=== PATIENT | male | born 1940 | race Caucasian/White ===

== ENCOUNTER 2016-10-04 16:35 | Inpatient (IN) | payer OTHER, BC ==
[2016-10-04] MEDS ORDERED: ACETAMINOPHEN 1000 MG/100 ML VIAL (NON FORMULARY) IVPB ONE (16:55)
--- NOTE | 2016-10-04 17:08 | PDOC ---
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 Patient was noted with a 105.1 fever upon presentation to ED. Patient denies any sick contacts, recent travels. Patient was seen by oncologist at [facility] on Friday and was given some oxycodone for joint/limb pain with movement. Patient denies nausea, vomiting, diarrhea, chest pain , SOB. PCP: Dr. Flores Oncologist : [facility] <Chaim Motley - Last Filed: 10/04/16 19:02> - General History Source: Patient, Family, Old Records Exam Limitations: No Limitations <Lobo Jerome - Last Filed: 10/04/16 19:08> - General Chief Complaint: Cold Symptoms Stated Complaint: FEVER Time Seen by Provider: 10/04/16 16:42 Past History <Chaim Motley - Last Filed: 10/04/16 19:02> - Past Medical History Anemia: Yes Asthma: No Cancer: Yes (STAGE IV LUNG CA) CVA: No COPD: No Dementia: No Diabetes: No GI Disorders: No Disorders: No Hypercholesterolemia: Yes Liver Disease: No Seizures: No Thyroid Disease: No - Psycho/Social/Smoking Cessation Hx Anxiety: No Suicidal Ideation: No Smoking History: Never smoked Have you smoked in the past 12 months: No If you are a former smoker, when did you quit?: 25 years ago Information on smoking cessation initiated: No Hx Alcohol Use: No Drug/Substance Use Hx: No Substance Use Type: None Hx Substance Use Treatment: No <Lobo Jerome - Last Filed: 10/04/16 19:08> - Past Medical History Allergies/Adverse Reactions: Allergies Allergy/AdvReac Type Severity Reaction Status Date / Time No Known Allergies Allergy Verified 10/04/16 16:46 Home Medications: Ambulatory Orders Cholecalciferol (Vitamin D3) [Vitamin D3] 2,000 unit PO DAILY 06/21/16 Multivitamin [Poly-Vitamin] 1 each PO DAILY 06/21/16 Pyridoxine HCl (B-6) [Vitamin B6 -] 100 mg PO DAILY 06/21/16 Sennosides/Docusate Sodium [Senna Plus Tablet] 1 each PO DAILY 06/21/16 Tamsulosin HCl [Flomax -] 0.8 mg PO DAILY 06/21/16 Tramadol HCl 50 mg PO DAILY 06/21/16 Furosemide [Lasix] 40 mg PO DAILY 10/04/16 Losartan Potassium [Cozaar -] 50 mg PO DAILY 10/04/16 Prednisone 10 mg PO BID 10/04/16 Review of Systems - Review of Systems Able to Perform ROS?: Yes Comments:: 10/04/16 17:20 GENERAL/CONSTITUTIONAL: + chills. + weakness. HEAD, EYES, EARS, NOSE AND THROAT: No change in vision. No ear pain or discharge. No sore throat. CARDIOVASCULAR: No chest pain or shortness of breath. RESPIRATORY: No cough, wheezing, or hemoptysis. GASTROINTESTINAL: No nausea, vomiting, diarrhea or constipation. GENITOURINARY: No dysuria, frequency, or change in urination. MUSCULOSKELETAL: No joint or muscle swelling or pain. No neck or back pain. SKIN: No rash NEUROLOGIC: No headache, vertigo, loss of consciousness, or change in strength/ sensation. ENDOCRINE: No increased thirst. No abnormal weight change. HEMATOLOGIC/LYMPHATIC: No anemia, easy bleeding, or history of blood clots. ALLERGIC/IMMUNOLOGIC: No hives or skin allergy. <Chaim Motley - Last Filed: 10/04/16 19:02> *Physical Exam - Vital Signs Last Vital Signs Temp Pulse Resp BP Pulse Ox 101.5 F H 111 H 20 109/57 98 10/04/16 16:46 10/04/16 16:46 10/04/16 16:46 10/04/16 16:46 10/04/16 16:46 - Physical Exam Comments: 10/04/16 17:23 GENERAL: Awake, alert, and fully oriented, in no acute distress. Warm to touch. HEAD: No signs of trauma EYES: PERRLA, EOMI, sclera anicteric, conjunctiva clear ENT: Auricles normal inspection, hearing grossly normal, nares patent, oropharynx clear without exudates. Moist mucosa NECK: Normal ROM, supple, no lymphadenopathy, JVD, or masses LUNGS: Breath sounds equal, clear to auscultation bilaterally. No wheezes, and no crackles HEART: Right sided chest port. Regular rate and rhythm, normal S1 and S2, no murmurs, rubs or gallops ABDOMEN: Soft, nontender, normoactive bowel sounds. No guarding, no rebound. No masses EXTREMITIES: Normal range of motion, no edema. No clubbing or cyanosis. No cords, erythema, or tenderness NEUROLOGICAL: Cranial nerves II through XII grossly intact. Normal speech, normal gait SKIN: Warm, Dry, normal turgor, no rashes or lesions noted. <Chaim Motley - Last Filed: 10/04/16 19:02> - Vital Signs Last Vital Signs Temp Pulse Resp BP Pulse Ox 101.5 F H 111 H 20 109/57 98 10/04/16 16:46 10/04/16 16:46 10/04/16 16:46 10/04/16 16:46 10/04/16 16:46 <Lobo Jerome - Last Filed: 10/04/16 19:08> Heart Score/ECG Review #1 ECG reviewed & interpreted by me at: 16:45 10/04/16 17:11 NSR 103, no std/cheko, TWI III, normal axis, normal intervals, QTC 406 msec <Lobo Jerome - Last Filed: 10/04/16 19:08> ED Treatment Course - LABORATORY CBC & Chemistry Diagram: 10/04/16 17:46 10/04/16 17:46 <Chaim Motley - Last Filed: 10/04/16 19:02> - LABORATORY CBC & Chemistry Diagram: 10/04/16 17:46 10/04/16 17:46 - RADIOLOGY Radiology Studies Ordered: Category Date Time Status CHEST X-RAY PORTABLE* [RAD] Stat Radiology 10/04/16 16:55 Ordered <Lobo Jerome - Last Filed: 10/04/16 19:08> Medical Decision Making - Medical Decision Making 10/04/16 19:[address] Flores at 19:02. <Chaim Motley - Last Filed: 10/04/16 19:02> - Medical Decision Making 10/04/16 17:07 A portion of this note was documented by scribe services under my direction. I have reviewed the details of the note, within reason, and agree with the documentation with the following case summary and management plan written by me. Patient treated in the ED. Nursing notes are reviewed and incorporated into the medical decision-making. Vital signs reviewed. Peripheral IV access obtained by the nurse, laboratory studies are drawn and sent, reviewed and interpreted by myself. Vital Signs Temp Pulse Resp BP Pulse Ox 101.5 F H 111 H 20 109/57 98 10/04/16 16:46 10/04/16 16:46 10/04/16 16:46 10/04/16 16:46 10/04/16 16:46 75 year old male with past medical history of lung cancer status post chemotherapy, last in summer of 2015, XRT approximately 2 months ago, history of anemia, BPH, chronic kidney disease, congestive heart failure, pancreatitis presents to the emergency department for generalized weakness and lethargy since yesterday. Patient is noted have fever here 101.5. Denies any coughing, vomiting, diarrhea, dysuria. Patient reports acute on chronic body aches. Came to the ER with the family for further evaluation. Adult sepsis protocol initiated. Likely infectious in etiology. We'll obtain influenza swab as well as labs including cultures. IV Tylenol. Watch fluid status. Low threshold for empiric antibiotic. We'll touch base with patient's primary care physician once last resulted. Consider admission. 10/04/16 19:06 CBC, BMP 10/04/16 17:46 10/04/16 17:46 CMP Sodium 136 mmol/L (136-145) 10/04/16 17:46 Potassium 4.7 mmol/L (3.5-5.1) 10/04/16 17:46 Chloride 102 mmol/L (98-107) 10/04/16 17:46 Carbon Dioxide 23 mmol/L (21-32) D 10/04/16 17:46 Anion Gap 11 (8-16) 10/04/16 17:46 BUN 32 mg/dL (7-18) H D 10/04/16 17:46 Creatinine 1.2 mg/dL (0.7-1.3) 10/04/16 17:46 Creat Clearance w eGFR 59.02 (>60) 10/04/16 17:46 Random Glucose 99 mg/dL (74-106) D 10/04/16 17:46 Lactic Acid 0.484 mmol/L (0.4-2.0) 10/04/16 17:46 Calcium 8.3 mg/dL (8.5-10.1) L D 10/04/16 17:46 Total Bilirubin 0.4 mg/dL (0.2-1.0) D 10/04/16 17:46 AST 35 U/L (15-37) D 10/04/16 17:46 ALT 36 U/L (12-78) D 10/04/16 17:46 Alkaline Phosphatase 96 U/L (45-117) D 10/04/16 17:46 Creatine Kinase 42 IU/L (39-308) 10/04/16 17:46 Troponin I < 0.02 ng/ml (0.00-0.05) 10/04/16 17:46 Total Protein 5.8 g/dl (6.4-8.2) L 10/04/16 17:46 Albumin 2.4 g/dl (3.4-5.0) L 10/04/16 17:46 UA pending. Chest xray reviewed by me, pending official radiology read. Empiric zosyn given for WBC 14.5 Will observe the patient in the hospital given weakness and fever and WBC. Case discussed with Dr. Flores. Will admit for med/surg observation. Case discussed in detail with admitting physician including history, physical exam and ancillary studies. Admitting physician has assumed care for the patient, will follow all pending diagnostics and will complete the evaluation and treatment. <Lobo Jerome - Last Filed: 10/04/16 19:08> *DC/Admit/Observation/Transfer - Attestations Scribe Attestion: 10/04/16 17:24 Documentation prepared by Chaim Motley, acting as biomedical engineer for Lobo Jerome MD, MD. <Chaim Motley - Last Filed: 10/04/16 19:02> - Discharge Dispostion Admit: Yes <Lobo Jerome - Last Filed: 10/04/16 19:08> Diagnosis at time of Disposition: Fever Qualifiers: Fever type: other Qualified Code(s): R50.81 - Fever presenting with conditions classified elsewhere - Discharge Dispostion Condition at time of disposition: Stable - Referrals Referrals: Radha Flores MD [Primary Care Provider] -
[2016-10-04] MEDS ORDERED: PIPERACILLIN/TAZOB 3.375 GM/50 ML PRE-DOCKED IVPB ONE (17:09)
[2016-10-04] MEDS ORDERED: ACETAMINOPHEN INJECTION 100 ML IVPB ONE (17:48)
[2016-10-04 18:10] LABS: BASOPHIL 0.2 % (0-2.0); EOSINOPHIL 0.5 % (0-4.5); MCH 25.8 pg (25.7-33.7); MCHC 31.7 g/dl (32.0-35.9); MEAN CELL VOLUME 81.3 fl (80-96); MEAN PLT VOLUME 6.9 fl (7.5-11.1); NEUTROPHILS 80.7 % (42.8-82.8); PLATELET COUNT 452 K/MM3 (134-434); RDW 16.9 % (11.9-15.9); WHITE BLOOD COUNT 14.5 K/mm3 (4.0-10.0)
[2016-10-04] MEDS ORDERED: PIPERACILLIN/TAZOB 3.375 GM 50 ML IVPB ONE (18:13)
[2016-10-04 18:18] LABS: VENOUS PH 7.47 (7.31-7.41)
[2016-10-04 18:19] LABS: VENOUS BLOOD GAS HCO3 21.9 meq/L (22-29)
[2016-10-04 18:21] LABS: INR 1.33 (0.82-1.09); PROTHROMBIN TIME (PATIENT) 14.7 SEC (9.98-11.88)
[2016-10-04 18:24] LABS: ACTIVATED PTT 33.7 SECONDS (26.9-34.4)
[2016-10-04 18:33] LABS: ALBUMIN 2.4 g/dl (3.4-5.0); ANION GAP 11 (8-16); BILIRUBIN,TOTAL 0.4 mg/dL (0.2-1.0); CALCIUM 8.3 mg/dL (8.5-10.1); CO2 23 mmol/L (21-32); CREATININE 1.2 mg/dL (0.7-1.3); GLUCOSE,RANDOM 99 mg/dL (74-106); SGPT/ALT 36 U/L (12-78); TOT PROT 5.8 g/dl (6.4-8.2)
[2016-10-04 18:35] LABS: ALK PHOS 96 U/L (45-117); TROPONIN I < 0.02 ng/ml (0.00-0.05)
[2016-10-04 18:41] LABS: SGOT/AST 35 U/L (15-37)
[2016-10-04] MEDS ORDERED: ACETAMINOPHEN 325 MG TABLET (FP) PO PRN (19:16)
[2016-10-04] MEDS ORDERED: D5-1/2NS+20 MEQ KCL - 1,000 ML IV SCH (19:30)
[2016-10-04] MEDS: predniSONE 10 MG TABLET (UD) PO SCH (21:53)
[2016-10-04] MEDS: HEPARIN NA (PORCINE) 5,000 UNITS/ML 1ML VIAL SQ SCH (21:54)
[2016-10-04] MEDS: D5-1/2NS+20 MEQ KCL - 1,000 ML IV SCH (23:50)
[2016-10-05 03:33] LABS: URINE APPEARANCE SLCLOUDY; URINE BILIRUBIN NEGATIVE (NEGATIVE); URINE COLOR YELLOW; URINE GLUCOSE (UA) NEGATIVE (NEGATIVE); URINE KETONE NEGATIVE (NEGATIVE); URINE NITRITE NEGATIVE (NEGATIVE); URINE PROTEIN NEGATIVE (NEGATIVE); URINE UROBILINOGEN NEGATIVE E.U./dl (0.2-1.0)
[2016-10-05 03:38] LABS: URINE BLOOD 1+ (NEGATIVE); URINE LEUK ESTERASE 2+ (NEGATIVE)
[2016-10-05 03:42] LABS: URINE MUCUS FEW; URINE RBC 6 /hpf (0-3); URINE WBC 46 /hpf (3-5)
[2016-10-05 03:44] LABS: URINE BACTERIA MODERATE /hpf (NONE SEEN)
[2016-10-05 03:52] VITALS: BMI 23.0
[2016-10-05] MEDS: D5-1/2NS+20 MEQ KCL - 1,000 ML IV SCH ×2 (07:00→20:20)
[2016-10-05 08:52] LABS: BASOPHIL 0.2 % (0-2.0); EOSINOPHIL 0.1 % (0-4.5); MCH 26.9 pg (25.7-33.7); MCHC 32.7 g/dl (32.0-35.9); MEAN CELL VOLUME 82.4 fl (80-96); MEAN PLT VOLUME 6.5 fl (7.5-11.1); NEUTROPHILS 85.5 % (42.8-82.8); PLATELET COUNT 432 K/MM3 (134-434); RDW 16.4 % (11.9-15.9); WHITE BLOOD COUNT 13.5 K/mm3 (4.0-10.0)
[2016-10-05] MEDS: TAMSULOSIN HCL 0.4 MG CAP.ER.24H (FP) PO SCH (09:41)
[2016-10-05] MEDS: LOSARTAN POTASSIUM 50 MG TABLET (FP) PO SCH (09:42)
[2016-10-05] MEDS: HEPARIN NA (PORCINE) 5,000 UNITS/ML 1ML VIAL SQ SCH ×2 (09:42→21:45)
[2016-10-05] MEDS: predniSONE 10 MG TABLET (UD) PO SCH ×2 (09:42→21:45)
[2016-10-05] MEDS: SENNOSIDES/DOCUSATE COMBO (SENNA PLUS) TABLET (UD) PO SCH (09:42)
[2016-10-05] MEDS: FUROSEMIDE 40 MG TABLET (FP) PO SCH (09:42)
--- NOTE | 2016-10-05 09:48 | HP ---
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: Peripheral Neuropathy (due to chemo (cisplatin)) Cardiovascular: Yes: Deep Vein Thrombosis (prior DVT in 2010 of right leg), HTN , Hyperlipdemia Pulmonary: Yes: Cancer (metastatic lung adenocarcinoma (mets to bone), treated with chemo in past and currently on immunotherapy) Renal/: Yes: Renal Inusuff, BPH Heme/Onc: Yes: Anemia - Smoking History Smoking history: Former smoker Have you smoked in the past 12 months: No If you are a former smoker, when did you quit?: 25 years ago - Alcohol/Substance Use Hx Alcohol Use: No History of Substance Use: reports: None Home Medications - Allergies Allergies/Adverse Reactions: Allergies Allergy/AdvReac Type Severity Reaction Status Date / Time No Known Allergies Allergy Verified 10/04/16 16:46 - Home Medications Home Medications: Ambulatory Orders Cholecalciferol (Vitamin D3) [Vitamin D3] 2,000 unit PO DAILY 06/21/16 Multivitamin [Poly-Vitamin] 1 each PO DAILY 06/21/16 Pyridoxine HCl (B-6) [Vitamin B6 -] 100 mg PO DAILY 06/21/16 Sennosides/Docusate Sodium [Senna Plus Tablet] 1 each PO DAILY 06/21/16 Tamsulosin HCl [Flomax -] 0.8 mg PO DAILY 06/21/16 Tramadol HCl 50 mg PO DAILY 06/21/16 Furosemide [Lasix] 40 mg PO DAILY 10/04/16 Losartan Potassium [Cozaar -] 50 mg PO DAILY 10/04/16 Prednisone 10 mg PO BID 10/04/16 Family Disease History - Family Disease History Family Disease History: Heart Disease: Father, CA: Mother (colon cancer) Review of Systems - Review of Systems Constitutional: reports: Fever, Weakness Cardiovascular: denies: Chest Pain Respiratory: denies: Cough Gastrointestinal: denies: Abdominal Pain, Constipation, Diarrhea Genitourinary: denies: Burning, Dysuria, Flank Pain Neurological: reports: Weakness. denies: Change in LOC, Confusion, Dizziness Physical Examination Vital Signs: Vital Signs Temperature 97.4 F L 10/05/16 06:00 Pulse Rate 80 10/05/16 06:00 Respiratory Rate 24 10/05/16 02:00 Blood Pressure 120/68 10/05/16 06:00 O2 Sat by Pulse Oximetry (%) 98 10/05/16 05:00 Cardiovascular: Yes: Regular Rate and Rhythm Respiratory: Yes: Regular, CTA Bilaterally Gastrointestinal: Yes: Normal Bowel Sounds, Soft. No: Tenderness Edema: No Labs: CBC, BMP 10/05/16 07:25 Problem List - Problems (1) Fever Assessment/Plan: IV ABX CULTURE ID CONSULT Code(s): R50.9 - FEVER, UNSPECIFIED Qualifiers: Fever type: other Qualified Code(s): R50.81 - Fever presenting with conditions classified elsewhere (2) Anemia Assessment/Plan: MONITOR Code(s): D64.9 - ANEMIA, UNSPECIFIED Qualifiers: Anemia type: unspecified type Qualified Code(s): D64.9 - Anemia, unspecified (3) HTN (hypertension) Assessment/Plan: STABLE Code(s): I10 - ESSENTIAL (PRIMARY) HYPERTENSION (4) Lung cancer Assessment/Plan: MONITORED AT [place] Code(s): C34.90 - MALIGNANT NEOPLASM OF UNSP PART OF UNSP BRONCHUS OR LUNG Qualifiers: Lung location: unspecified part of lung
[2016-10-05] MEDS ORDERED: PYRIDOXINE HCL (B-6) 100 MG TABLET PO SCH (10:00)
[2016-10-05 11:07] LABS: ALBUMIN 2.5 g/dl (3.4-5.0); BILIRUBIN,TOTAL 0.5 mg/dL (0.2-1.0); CALCIUM 8.9 mg/dL (8.5-10.1); CREATININE 1.4 mg/dL (0.7-1.3); TOT PROT 6.1 g/dl (6.4-8.2)
[2016-10-05] MEDS ORDERED: PORTA CATH FLUSH 10 ML IVPUSH PRN (12:09)
--- NOTE | 2016-10-05 16:21 | EKG ---
Test Reason : Blood Pressure : / mmHG Vent. Rate : 103 BPM Atrial Rate : 104 BPM P-R Int : 152 ms QRS Dur : 086 ms QT Int : 310 ms P-R-T Axes : 042 046 035 degrees QTc Int : 406 ms SINUS TACHYCARDIA WITH OCCASIONAL PREMATURE VENTRICULAR COMPLEXES OTHERWISE NORMAL ECG WHEN COMPARED WITH ECG OF 21-JUN-2016 15:40, PREMATURE VENTRICULAR COMPLEXES ARE NOW PRESENT NONSPECIFIC T WAVE ABNORMALITY, IMPROVED IN INFERIOR LEADS Confirmed by DALIA NORRIS, MCKINLEY ([id number]) on 10/05/2016 4:21:35 PM Referred By: Confirmed By:MCKINLEY GÓMEZ MD
[2016-10-05] MEDS: PIPERACILLIN/TAZOB 3.375 GM 50 ML IVPB SCH (16:22)
--- NOTE | 2016-10-05 18:14 | PN ---
Progress Note (short form) - Note Progress Note: ID Consult dictated Fever, leukocytosis possible sepsis Stage IV lung ca Azotemia Pending sepsis workup, empiric zosyn
--- NOTE | 2016-10-05 20:01 | CONS ---
DATE OF CONSULTATION: DATE OF DICTATION: 10/05/2016 HISTORY OF PRESENT ILLNESS: The patient is a 75-year-old male with a history of stage IV lung cancer who was evaluated for fever. The patient was admitted to the hospital on October 04 with complaints of generalized body aches and chills. He was found in the emergency room to have a fever of 101.5. Cultures were obtained and he was empirically treated with Zosyn. He had no focal complaint. He denies any chest pain, shortness of breath, cough, or sputum production. No vomiting or diarrhea. No dysuria or hematuria. He had been seen by his oncologist at [facility] and was given oxycodone for body ache. On admission to the hospital, his white blood cell count was 14.5. PAST MEDICAL HISTORY: Positive for stage IV lung cancer with metastases to the bone on immunotherapy, BPH, hyperlipidemia, peripheral neuropathy secondary to chemotherapy, DVT, Opdivo induced diarrhea. ALLERGIES: No known allergies. MEDICATIONS: Include prednisone, Flomax, Tylenol, Cozaar, heparin, Reena-Colace, Lasix, and vitamin B6. SOCIAL HISTORY: Lives at home with his . He is a former smoker. SYSTEMS REVIEW: Neurologic: No loss of consciousness, seizure activity, or focal weakness. Cardiac: Negative chest pain or palpitations. Respiratory: As per HPI. Gastrointestinal: Negative vomiting or diarrhea. Genitourinary: Negative for urinary tract infection. LABORATORY DATA: White count 13.5, hematocrit 30.5, platelet count 432, BUN 28, creatinine 1.4. Urinalysis: 46 white cells. Chest x-ray shows mass-like density in the right upper lobe. PHYSICAL EXAMINATION: General: The patient is awake and alert. He is not acutely toxic-appearing, in no acute distress. Vital Signs: His temperature is 97.3, blood pressure 131/68, pulse 86 and regular, respirations 20 per minute. HEENT: Sclerae anicteric. Heart: Heart sounds S1, S2. Lungs: Clear bilaterally. No rhonchi, rales, or wheezing. Port site right chest, no erythema or tenderness. Abdomen: Soft. No tenderness elicited. No mass, rebound, or rigidity. Extremities: Negative for edema. IMPRESSION: 1. Fever, leukocytosis, unclear source. 2. Stage IV lung cancer. PLAN: Await culture results. Will treat empirically for the possibility of postobstructive pneumonia with Zosyn 3.375 g IV piggyback every 8 hours, pending sepsis workup. Influenza swab preliminarily negative. Cannot rule out a viral syndrome, including influenza. Will follow. Thank you for the kind referral. ELEANOR WICK M.D. [id number]
[2016-10-06] MEDS: PIPERACILLIN/TAZOB 3.375 GM 50 ML IVPB SCH ×3 (02:40→17:07)
[2016-10-06] MEDS: D5-1/2NS+20 MEQ KCL - 1,000 ML IV SCH ×3 (04:21→21:26)
[2016-10-06] MEDS: SENNOSIDES/DOCUSATE COMBO (SENNA PLUS) TABLET (UD) PO SCH (09:45)
[2016-10-06] MEDS: predniSONE 10 MG TABLET (UD) PO SCH (09:45)
[2016-10-06] MEDS: LOSARTAN POTASSIUM 50 MG TABLET (FP) PO SCH (09:45)
[2016-10-06] MEDS: FUROSEMIDE 40 MG TABLET (FP) PO SCH (09:45)
[2016-10-06] MEDS: TAMSULOSIN HCL 0.4 MG CAP.ER.24H (FP) PO SCH (09:45)
[2016-10-06] MEDS: HEPARIN NA (PORCINE) 5,000 UNITS/ML 1ML VIAL SQ SCH ×2 (09:46→21:27)
[2016-10-06] MEDS: PYRIDOXINE HCL (B-6) 50 MG TABLET (FP) PO SCH (09:57)
[2016-10-06 09:58] LABS: BASOPHIL 0.1 % (0-2.0); MCH 26.4 pg (25.7-33.7); MEAN CELL VOLUME 82.6 fl (80-96); MEAN PLT VOLUME 6.9 fl (7.5-11.1); NEUTROPHILS 87.5 % (42.8-82.8); PLATELET COUNT 475 K/MM3 (134-434); RDW 16.7 % (11.9-15.9); WHITE BLOOD COUNT 11.5 K/mm3 (4.0-10.0)
[2016-10-06 10:16] LABS: ALBUMIN 2.5 g/dl (3.4-5.0); BILIRUBIN,TOTAL 0.3 mg/dL (0.2-1.0); CALCIUM 8.3 mg/dL (8.5-10.1); CREATININE 1.4 mg/dL (0.7-1.3); TOT PROT 6.4 g/dl (6.4-8.2)
--- NOTE | 2016-10-06 12:32 | PN ---
Progress Note, Physician - Current Medication List Current Medications: Active Medications Acetaminophen (Tylenol -) 650 mg PO Q4H PRN PRN Reason: FEVER OR PAIN Furosemide (Lasix -) 40 mg PO DAILY [facility] Last Admin: 10/06/16 09:45 Dose: 40 mg Heparin Sodium (Porcine) (Heparin -) 5,000 unit SQ BID [facility] Last Admin: 10/06/16 09:46 Dose: 5,000 unit IV Flush (Dillon-Cath Flush) 10 ml IVPUSH PRN PRN PRN Reason: maintain patency Potassium Chloride/Dextrose/Sod Cl (D5-1/2ns+20 Meq Kcl -) 1,000 mls @ 150 mls/ hr IV ASDIR [facility] Last Admin: 10/06/16 04:21 Dose: 150 mls/hr Piperacillin Sod/Tazobactam Sod (Zosyn 3.375gm Ivpb (Pre-Docked)) 50 mls @ 100 mls/hr IVPB Q8H-IV [facility] Last Admin: 10/06/16 09:45 Dose: 100 mls/hr Losartan Potassium (Cozaar -) 50 mg PO DAILY [facility] Last Admin: 10/06/16 09:45 Dose: 50 mg Prednisone (Deltasone -) 10 mg PO BID [facility] Last Admin: 10/06/16 09:45 Dose: 10 mg Pyridoxine HCl (Vitamin B6 -) 100 mg PO DAILY [facility] Last Admin: 10/06/16 09:57 Dose: 100 mg Senna/Docusate Sodium (Pericolace -) 1 tablet PO DAILY [facility] Last Admin: 10/06/16 09:45 Dose: 1 tablet Tamsulosin HCl (Flomax -) 0.8 mg PO DAILY@0830 [facility] Last Admin: 10/06/16 09:45 Dose: 0.8 mg - Objective Vital Signs: Vital Signs Temperature 97.5 F L 10/06/16 05:00 Pulse Rate 91 H 10/06/16 09:00 Respiratory Rate 18 10/06/16 09:00 Blood Pressure 134/67 10/06/16 09:00 O2 Sat by Pulse Oximetry (%) 97 10/05/16 20:31 Cardiovascular: Yes: Regular Rate and Rhythm Respiratory: Yes: Regular, CTA Bilaterally Gastrointestinal: Yes: Normal Bowel Sounds, Soft Labs: CBC, BMP 10/06/16 09:15 10/06/16 09:15 INR, PTT INR 1.33 (0.82-1.09) H D 10/04/16 17:46 Problem List - Problems (1) Fever Assessment/Plan: IV ABX CULTURE ID CONSULT Code(s): R50.9 - FEVER, UNSPECIFIED Qualifiers: Fever type: other Qualified Code(s): R50.81 - Fever presenting with conditions classified elsewhere (2) Anemia Assessment/Plan: MONITOR Code(s): D64.9 - ANEMIA, UNSPECIFIED Qualifiers: Anemia type: unspecified type Qualified Code(s): D64.9 - Anemia, unspecified (3) HTN (hypertension) Assessment/Plan: STABLE Code(s): I10 - ESSENTIAL (PRIMARY) HYPERTENSION (4) Lung cancer Assessment/Plan: MONITORED AT [place] Code(s): C34.90 - MALIGNANT NEOPLASM OF UNSP PART OF UNSP BRONCHUS OR LUNG Qualifiers: Lung location: unspecified part of lung
--- NOTE | 2016-10-06 18:41 | PN ---
Progress Note, Physician History of Present Illness: Awake, alert Feels well No focal complaint No fever/ chills No c/o chest pain/ dyspnea/ cough - Current Medication List Current Medications: Active Medications Acetaminophen (Tylenol -) 650 mg PO Q4H PRN PRN Reason: FEVER OR PAIN Furosemide (Lasix -) 40 mg PO DAILY [facility] Last Admin: 10/06/16 09:45 Dose: 40 mg Heparin Sodium (Porcine) (Heparin -) 5,000 unit SQ BID [facility] Last Admin: 10/06/16 09:46 Dose: 5,000 unit IV Flush (Dillon-Cath Flush) 10 ml IVPUSH PRN PRN PRN Reason: maintain patency Potassium Chloride/Dextrose/Sod Cl (D5-1/2ns+20 Meq Kcl -) 1,000 mls @ 150 mls/ hr IV ASDIR [facility] Last Admin: 10/06/16 17:07 Dose: 150 mls/hr Piperacillin Sod/Tazobactam Sod (Zosyn 3.375gm Ivpb (Pre-Docked)) 50 mls @ 100 mls/hr IVPB Q8H-IV [facility] Last Admin: 10/06/16 17:07 Dose: 100 mls/hr Losartan Potassium (Cozaar -) 50 mg PO DAILY [facility] Last Admin: 10/06/16 09:45 Dose: 50 mg Prednisone (Deltasone -) 10 mg PO DAILY [facility] Pyridoxine HCl (Vitamin B6 -) 100 mg PO DAILY [facility] Last Admin: 10/06/16 09:57 Dose: 100 mg Senna/Docusate Sodium (Pericolace -) 1 tablet PO DAILY [facility] Last Admin: 10/06/16 09:45 Dose: 1 tablet Tamsulosin HCl (Flomax -) 0.8 mg PO DAILY@0830 [facility] Last Admin: 10/06/16 09:45 Dose: 0.8 mg - Objective Vital Signs: Vital Signs Temperature 97.3 F L 10/06/16 14:24 Pulse Rate 74 10/06/16 14:24 Respiratory Rate 18 10/06/16 09:00 Blood Pressure 128/78 10/06/16 14:24 O2 Sat by Pulse Oximetry (%) 97 10/05/16 20:31 Constitutional: Yes: No Distress Eyes: Yes: Conjunctiva Clear Cardiovascular: Yes: Regular Rate and Rhythm, S1, S2 Respiratory: Yes: CTA Bilaterally Gastrointestinal: Yes: Normal Bowel Sounds, Soft. No: Tenderness Edema: No Labs: INR, PTT INR 1.33 (0.82-1.09) H D 10/04/16 17:46 Assessment/Plan Fever/ leukocytosis-improved Stage IV lung ca Azotemia Cultures thusfar negative Continue empiric zosyn
[2016-10-07] MEDS: PIPERACILLIN/TAZOB 3.375 GM 50 ML IVPB SCH ×2 (02:12→09:58)
[2016-10-07 06:19] LABS: BASOPHIL 0.5 % (0-2.0); EOSINOPHIL 0.5 % (0-4.5); MCH 26.5 pg (25.7-33.7); MCHC 32.3 g/dl (32.0-35.9); MEAN CELL VOLUME 82.1 fl (80-96); MEAN PLT VOLUME 6.8 fl (7.5-11.1); NEUTROPHILS 75.1 % (42.8-82.8); PLATELET COUNT 461 K/MM3 (134-434); RDW 16.6 % (11.9-15.9); WHITE BLOOD COUNT 10.4 K/mm3 (4.0-10.0)
[2016-10-07] MEDS: TAMSULOSIN HCL 0.4 MG CAP.ER.24H (FP) PO SCH (08:11)
[2016-10-07] MEDS: D5-1/2NS+20 MEQ KCL - 1,000 ML IV SCH (08:11)
[2016-10-07] MEDS: HEPARIN NA (PORCINE) 5,000 UNITS/ML 1ML VIAL SQ SCH (09:58)
[2016-10-07] MEDS: FUROSEMIDE 40 MG TABLET (FP) PO SCH (09:59)
[2016-10-07] MEDS: LOSARTAN POTASSIUM 50 MG TABLET (FP) PO SCH (09:59)
[2016-10-07] MEDS ORDERED: predniSONE 10 MG TABLET (UD) PO SCH (10:00)
[2016-10-07] MEDS: PYRIDOXINE HCL (B-6) 50 MG TABLET (FP) PO SCH (10:12)
[2016-10-07] MEDS: SENNOSIDES/DOCUSATE COMBO (SENNA PLUS) TABLET (UD) PO SCH (10:12)
--- NOTE | 2016-10-07 10:47 | PN ---
Progress Note, Physician History of Present Illness: Feels well. No complaints Afebrile No chills No c/o chest pain/ dyspnea/ cough No dysuria - Current Medication List Current Medications: Active Medications Acetaminophen (Tylenol -) 650 mg PO Q4H PRN PRN Reason: FEVER OR PAIN Furosemide (Lasix -) 40 mg PO DAILY [facility] Last Admin: 10/07/16 09:59 Dose: 40 mg Heparin Sodium (Porcine) (Heparin -) 5,000 unit SQ BID [facility] Last Admin: 10/07/16 09:58 Dose: 5,000 unit IV Flush (Dillon-Cath Flush) 10 ml IVPUSH PRN PRN PRN Reason: maintain patency Potassium Chloride/Dextrose/Sod Cl (D5-1/2ns+20 Meq Kcl -) 1,000 mls @ 150 mls/ hr IV ASDIR [facility] Last Admin: 10/07/16 08:11 Dose: 150 mls/hr Piperacillin Sod/Tazobactam Sod (Zosyn 3.375gm Ivpb (Pre-Docked)) 50 mls @ 100 mls/hr IVPB Q8H-IV [facility] Last Admin: 10/07/16 09:58 Dose: 100 mls/hr Losartan Potassium (Cozaar -) 50 mg PO DAILY [facility] Last Admin: 10/07/16 09:59 Dose: 50 mg Prednisone (Deltasone -) 10 mg PO DAILY [facility] Last Admin: 10/07/16 09:59 Dose: 10 mg Pyridoxine HCl (Vitamin B6 -) 100 mg PO DAILY [facility] Last Admin: 10/07/16 10:12 Dose: 100 mg Senna/Docusate Sodium (Pericolace -) 1 tablet PO DAILY [facility] Last Admin: 10/07/16 10:12 Dose: Not Given Tamsulosin HCl (Flomax -) 0.8 mg PO DAILY@0830 [facility] Last Admin: 10/07/16 08:11 Dose: 0.8 mg - Objective Vital Signs: Vital Signs Temperature 97.5 F L 10/07/16 09:13 Pulse Rate 81 10/07/16 09:13 Respiratory Rate 18 10/07/16 09:13 Blood Pressure 129/61 10/07/16 09:13 O2 Sat by Pulse Oximetry (%) 97 10/06/16 21:00 Constitutional: Yes: No Distress Cardiovascular: Yes: Regular Rate and Rhythm, S1, S2 Respiratory: Yes: CTA Bilaterally Gastrointestinal: Yes: Normal Bowel Sounds, Hepatomegaly. No: Tenderness Edema: No Integumentary: Yes: Other (port site no erythema) Labs: CBC, BMP 10/07/16 05:45 INR, PTT INR 1.33 (0.82-1.09) H D 10/04/16 17:46 Assessment/Plan Fever/ leukocytosis-improved Stage IV lung ca Azotemia Cultures negative Substitute augmentin x 3days
--- NOTE | 2016-10-07 12:50 | DS ---
Physical Examination Vital Signs: Vital Signs Temperature 97.5 F L 10/07/16 09:13 Pulse Rate 81 10/07/16 09:13 Respiratory Rate 18 10/07/16 09:13 Blood Pressure 129/61 10/07/16 09:13 O2 Sat by Pulse Oximetry (%) 97 10/07/16 09:00 Constitutional: Yes: Calm Neck: Yes: Trachea Midline Cardiovascular: Yes: Regular Rate and Rhythm, S1, S2 Respiratory: Yes: CTA Bilaterally Gastrointestinal: Yes: Normal Bowel Sounds, Soft Edema: No Neurological: Yes: Alert, Oriented Labs: CBC, BMP 10/07/16 05:45 Discharge Summary Reason For Visit: FEVER Current Active Problems Fever (Acute) Hospital Course: The patient is a 75 year old pleasant male with a significant past medical history of HTN, HLD, peripheral neuropathy due to chemo, Deep vein thrombosis, metastatic lung adenocarcinoma, renal insuff, BPH, and anemia, who presents to the ED with body aches and chills that began yesterday. Patient was noted with a 105.1 fever upon presentation to ED. Patient denies any sick contacts, recent travels. Patient was seen by oncologist at [facility] on Friday and was given some oxycodone for joint/limb pain with movement. Patient denies nausea, vomiting, diarrhea, chest pain , SOB. PCP: Dr. Flores Oncologist : [facility] admitted for sepsis with elevated WBC now trending down was in iv abx changed to po all cultures negative augmentin for 3 days stage 4 lung cancer - follow up with oncologist at [facility] - Instructions Diet, Activity, Other Instructions: augmentin po bid for 3 days Referrals: Radha Flores MD [Primary Care Provider] - Disposition: HOME - Home Medications Comprehensive Discharge Medication List: Ambulatory Orders Cholecalciferol (Vitamin D3) [Vitamin D3] 2,000 unit PO DAILY 06/21/16 Multivitamin [Poly-Vitamin] 1 each PO DAILY 06/21/16 Pyridoxine HCl (B-6) [Vitamin B6 -] 100 mg PO DAILY 06/21/16 Sennosides/Docusate Sodium [Senna Plus Tablet] 1 each PO DAILY 06/21/16 Tamsulosin HCl [Flomax -] 0.8 mg PO DAILY 06/21/16 Tramadol HCl 50 mg PO DAILY 06/21/16 Furosemide [Lasix] 40 mg PO DAILY 10/04/16 Losartan Potassium [Cozaar -] 50 mg PO DAILY 10/04/16 Prednisone 10 mg PO BID 10/04/16
[2016-10-07 15:02] VITALS: BP 121/75; PULSE 67; TEMP 98.1
[2016-10-07] MEDS ORDERED: PORTA CATH FLUSH 10 ML IVPUSH ONE (15:10)
[2016-10-07] MEDS ORDERED: AMOX TR/POT CLAV 875MG/125MG TABLETS (FP) PO SCH (17:30)
== END 2016-10-07 15:16 | disposition home or self-care (01) | DRG 864 ==
LOC: JER 16:35 → JERBED 19:42 → J6S 21:12 → OBSVTOIN 10-06 14:27
PROVIDERS: ADMIT Family Medicine; ATTEND Family Medicine
DX: R50.9 Fever, unspecified (principal); C34.90 Malignant neoplasm of unspecified part of unspecified bronchus or lung; C79.51 Secondary malignant neoplasm of bone; D72.829 Elevated white blood cell count, unspecified; Z87.891 Personal history of nicotine dependence; N40.0 Benign prostatic hyperplasia without lower urinary tract symptoms; D64.9 Anemia, unspecified; G62.0 Drug-induced polyneuropathy; T45.1X5A Adverse effect of antineoplastic and immunosuppressive drugs, initial encounter; Z86.718 Personal history of other venous thrombosis and embolism; Z79.01 Long term (current) use of anticoagulants; M79.1 Myalgia
CPT/HCPCS: 36415; 71010-TC; 80053; 81003; 81015; 82550; 82803; 83605; 83690; 84484; 85025; 85610; 85730; 86850; 86900; 86901; 87040; 87086; 87804; 93005; 93010; 99283-25; G0378; J1644

== ENCOUNTER 2016-10-11 14:22 | Inpatient (IN) | payer OTHER, BC ==
--- NOTE | 2016-10-11 15:32 | PDOC ---
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 The patient reports that there is pain in his feet, ankles, elbows, and wrists, that is exacerbated when lifting. He reports swelling in his wrists. He is experiencing generalized weakness. He takes oxycodone for the pain with no relief. He reports that he was admitted to [facility] last week for the same issue. His PCP recommended he go to the ER for further evaluation of symptoms and abnormal results of bloodwork done two days ago. The patient denies chest pain, shortness of breath, headache and dizziness. The patient denies fever, nausea, vomit, diarrhea and constipation. The patient denies dysuria, frequency, urgency and hematuria. Allergies: NKDA PCP: Dr. Radha Flores <Sandrine Christensen - Last Filed: 10/11/16 18:19> <Niurka Montes - Last Filed: 10/12/16 16:31> - General Chief Complaint: Weakness Stated Complaint: PAIN Time Seen by Provider: 10/11/16 15:13 Past History <Sandrine Christensen - Last Filed: 10/11/16 18:19> - Past Medical History Anemia: Yes Asthma: No Cancer: Yes (STAGE IV LUNG CA) CVA: No COPD: No Dementia: No Diabetes: No GI Disorders: No Disorders: No Hypercholesterolemia: Yes Liver Disease: No Seizures: No Thyroid Disease: No - Psycho/Social/Smoking Cessation Hx Anxiety: No Suicidal Ideation: No Smoking History: Former smoker Have you smoked in the past 12 months: No If you are a former smoker, when did you quit?: 25 years ago Information on smoking cessation initiated: No Hx Alcohol Use: No Drug/Substance Use Hx: No Substance Use Type: None Hx Substance Use Treatment: No <Niurka Montes - Last Filed: 10/12/16 16:31> - Past Medical History Allergies/Adverse Reactions: Allergies Allergy/AdvReac Type Severity Reaction Status Date / Time No Known Allergies Allergy Verified 10/11/16 15:02 Home Medications: Ambulatory Orders Cholecalciferol (Vitamin D3) [Vitamin D3] 2,000 unit PO DAILY 06/21/16 Multivitamin [Poly-Vitamin] 1 each PO DAILY 06/21/16 Pyridoxine HCl (B-6) [Vitamin B6 -] 100 mg PO DAILY 06/21/16 Sennosides/Docusate Sodium [Senna Plus Tablet] 1 each PO DAILY 06/21/16 Tamsulosin HCl [Flomax -] 0.8 mg PO DAILY 06/21/16 Furosemide [Lasix] 40 mg PO DAILY 10/04/16 Losartan Potassium [Cozaar -] 50 mg PO DAILY 10/04/16 Acetaminophen [Tylenol .Regular Strength -] 650 mg PO Q4H PRN #0 tablet Amox-Tr/K Cl [Augmentin 875-125mg Tablet -] 1 tab PO BID@0800,1730 #7 tablet Prednisone [Deltasone -] 10 mg PO DAILY tablet 10/07/16 Review of Systems - Review of Systems Able to Perform ROS?: Yes Comments:: 10/11/16 16:30 GENERAL/CONSTITUTIONAL: (+) Chills. (+) Weakness. No fever. HEAD, EYES, EARS, NOSE AND THROAT: No change in vision. No ear pain or discharge. No sore throat. CARDIOVASCULAR: No chest pain or shortness of breath. RESPIRATORY: No cough, wheezing, or hemoptysis. GASTROINTESTINAL: No nausea, vomiting, diarrhea or constipation. GENITOURINARY: No dysuria, frequency, or change in urination. MUSCULOSKELETAL: (+) Body and joint pain. (+)Wrist swelling. No neck or back pain. SKIN: No rash NEUROLOGIC: No headache, vertigo, loss of consciousness, or change in strength/ sensation. ENDOCRINE: No increased thirst. No abnormal weight change. HEMATOLOGIC/LYMPHATIC: No anemia, easy bleeding, or history of blood clots. ALLERGIC/IMMUNOLOGIC: No hives or skin allergy. <Sandrine Christensen - Last Filed: 10/11/16 18:19> *Physical Exam - Vital Signs Last Vital Signs Temp Pulse Resp BP Pulse Ox 98.1 F 106 H 16 109/81 98 10/11/16 14:38 10/11/16 14:38 10/11/16 14:38 10/11/16 14:38 10/11/16 14:38 - Physical Exam Comments: 10/11/16 16:31 GENERAL: Awake, alert, and fully oriented, in no acute distress HEAD: No signs of trauma EYES: PERRLA, EOMI, sclera anicteric, conjunctiva clear ENT: Auricles normal inspection, hearing grossly normal, nares patent, oropharynx clear without exudates. Moist mucosa NECK: Normal ROM, supple, no lymphadenopathy, JVD, or masses LUNGS: Breath sounds equal, clear to auscultation bilaterally. No wheezes, and no crackles HEART: Regular rate and rhythm, normal S1 and S2, no murmurs, rubs or gallops ABDOMEN: Soft, nontender, normoactive bowel sounds. No guarding, no rebound. No masses EXTREMITIES: (+) 1+ non-pitting edema to the wrists and ankles bilaterally. (+) Peripheral pulses intact. Normal range of motion. No clubbing or cyanosis. No cords, erythema, or tenderness NEUROLOGICAL: Cranial nerves II through XII grossly intact. Normal speech, normal gait SKIN: Warm, Dry, normal turgor, no rashes or lesions noted. <Christensen,Sandrine - Last Filed: 10/11/16 18:19> - Vital Signs Last Vital Signs Temp Pulse Resp BP Pulse Ox 98.1 F 106 H 16 109/81 98 10/11/16 14:38 10/11/16 14:38 10/11/16 14:38 10/11/16 14:38 10/11/16 14:38 <Niurka Montes - Last Filed: 10/12/16 16:31> Heart Score/ECG Review - ECG Impressions Comment:: EKG read 15:09- Sinus tach 106 bpm, no acute ST/T changes. Occasional PVC. <Niurka Montes - Last Filed: 10/12/16 16:31> ED Treatment Course - LABORATORY CBC & Chemistry Diagram: 10/11/16 15:10 10/11/16 15:10 - RADIOLOGY Radiograph Interpretation: 10/11/16 18:19 CHEST XR PORTABLE Reviewed by: Dr. Niurka Montes Interpreted by: Dr. Radha Mackenzie IMPRESSION: Since 10/04/16, a right internal jugular central venous catheter is again seen with its tip in the superior vena cava. Residual atelectatic changes versus infiltrates are again seen in the right lung apex. <Sandrine Christensen - Last Filed: 10/11/16 18:19> - LABORATORY CBC & Chemistry Diagram: 10/12/16 06:00 10/12/16 06:00 <Niurka Montes - Last Filed: 10/12/16 16:31> Medical Decision Making - Medical Decision Making Patient with lung CA, recent abx treatment completed, but the leukocytosis has returned. With multiple swollen joints and diffuse body aches. D/w Dr. Bates, covering Dr. Flores. Will admit for further management. <Niurka Montes - Last Filed: 10/12/16 16:31> *DC/Admit/Observation/Transfer - Attestations Scribe Attestion: 10/11/16 16:36 Documentation prepared by Sandrine Christensen, acting as ophthalmic medical technologist for Niurka Montes MD. <Sandrine Christensen - Last Filed: 10/11/16 18:19> - Discharge Dispostion Admit: Yes <Niurka Montes - Last Filed: 10/12/16 16:31> Diagnosis at time of Disposition: Lung cancer Qualifiers: Laterality: unspecified laterality Lung location: unspecified part of lung Qualified Code(s): C34.90 - Malignant neoplasm of unspecified part of unspecified bronchus or lung Leukocytosis Qualifiers: Leukocytosis type: unspecified Qualified Code(s): D72.829 - Elevated white blood cell count, unspecified - Discharge Dispostion Condition at time of disposition: Stable - Referrals
[2016-10-11] MEDS ORDERED: SODIUM CHLORIDE 1,000 ML IV STA (15:33)
[2016-10-11] MEDS ORDERED: morphine CARPU-JECT 2 MG/1 ML DISP.SYRIN IVPUSH ONE (15:33)
[2016-10-11] MEDS ORDERED: morphine CARPU-JECT 2 MG/1 ML DISP.SYRIN ONE (16:26)
[2016-10-11 16:30] LABS: BASOPHIL 0.3 % (0-2.0); EOSINOPHIL 0.3 % (0-4.5); MCH 26.7 pg (25.7-33.7); MCHC 33.1 g/dl (32.0-35.9); MEAN CELL VOLUME 80.6 fl (80-96); MEAN PLT VOLUME 6.6 fl (7.5-11.1); NEUTROPHILS 76.6 % (42.8-82.8); PLATELET COUNT 437 K/MM3 (134-434); RDW 16.8 % (11.9-15.9); WHITE BLOOD COUNT 15.5 K/mm3 (4.0-10.0)
[2016-10-11 16:57] LABS: ALBUMIN 2.6 g/dl (3.4-5.0); BILIRUBIN,TOTAL 0.5 mg/dL (0.2-1.0); CALCIUM 8.9 mg/dL (8.5-10.1); CREATININE 1.3 mg/dL (0.7-1.3); MAGNESIUM 1.6 mg/dL (1.8-2.4); PHOSPHOROUS 2.7 mg/dL (2.5-4.9); TOT PROT 6.2 g/dl (6.4-8.2)
[2016-10-11] MEDS ORDERED: ALBUTEROL SO4 2.5/IPRATROPIUM 0.5 INH SOL 3 ML VIAL.NEB. NEB PRN (18:30)
[2016-10-11] MEDS ORDERED: MAGNESIUM SULF 50% (8.12 MEQ/2 ML-1 GM VIAL) IVPB ONE (18:33)
[2016-10-11] MEDS ORDERED: morphine CARPU-JECT 4 MG/1 ML DISP.SYRIN IVPUSH ONE (18:51)
[2016-10-11] MEDS ORDERED: MAGNESIUM SULF 50% (8.12 MEQ/2 ML-1 GM VIAL) ONE (19:21)
[2016-10-11] MEDS ORDERED: morphine CARPU-JECT 4 MG/1 ML DISP.SYRIN ONE (19:22)
[2016-10-11] MEDS ORDERED: ACETAMINOPHEN 325 MG TABLET (FP) ONE (19:47)
[2016-10-11] MEDS: ACETAMINOPHEN 325 MG TABLET (FP) PO PRN (19:52)
[2016-10-11 19:53] LABS: URINE APPEARANCE SLCLOUDY; URINE BILIRUBIN NEGATIVE (NEGATIVE); URINE COLOR LTYELLOW; URINE GLUCOSE (UA) NEGATIVE (NEGATIVE); URINE KETONE NEGATIVE (NEGATIVE); URINE NITRITE NEGATIVE (NEGATIVE); URINE PROTEIN NEGATIVE (NEGATIVE); URINE UROBILINOGEN NEGATIVE E.U./dl (0.2-1.0)
[2016-10-11 20:28] LABS: URINE BLOOD 1+ (NEGATIVE); URINE LEUK ESTERASE 3+ (NEGATIVE)
[2016-10-11 20:34] LABS: URINE BACTERIA RARE /hpf (NONE SEEN); URINE MUCUS RARE; URINE RBC 28 /hpf (0-3); URINE WBC 64 /hpf (3-5)
[2016-10-11] MEDS: SENNOSIDES 8.6MG TABLET (FP) PO SCH (23:03)
[2016-10-12] MEDS ORDERED: morphine CARPU-JECT 4 MG/1 ML DISP.SYRIN IVPB PRN (00:22)
[2016-10-12] MEDS ORDERED: ACETAMINOPHEN 325 MG TABLET (FP) PO ONE (00:30)
[2016-10-12 04:29] VITALS: BMI 25.7
[2016-10-12] MEDS: ACETAMINOPHEN 325 MG TABLET (FP) PO PRN (06:01)
[2016-10-12 07:26] LABS: MCH 26.5 pg (25.7-33.7); MCHC 32.6 g/dl (32.0-35.9); MEAN CELL VOLUME 81.2 fl (80-96); MEAN PLT VOLUME 6.6 fl (7.5-11.1); PLATELET COUNT 458 K/MM3 (134-434); RDW 17.2 % (11.9-15.9); WHITE BLOOD COUNT 19.5 K/mm3 (4.0-10.0)
[2016-10-12 08:01] LABS: ALBUMIN 2.5 g/dl (3.4-5.0); ANION GAP 16 (8-16); BILIRUBIN,TOTAL 0.9 mg/dL (0.2-1.0); CALCIUM 8.5 mg/dL (8.5-10.1); CO2 20 mmol/L (21-32); CREATININE 1.3 mg/dL (0.7-1.3); GLUCOSE,RANDOM 57 mg/dL (74-106); SGOT/AST 18 U/L (15-37); SGPT/ALT 33 U/L (12-78); TOT PROT 6.3 g/dl (6.4-8.2)
[2016-10-12 08:02] LABS: ALK PHOS 83 U/L (45-117)
[2016-10-12] MEDS: TAMSULOSIN HCL 0.4 MG CAP.ER.24H (FP) PO SCH (08:28)
--- NOTE | 2016-10-12 09:45 | PN ---
Progress Note, Physician Chief Complaint: ID Polyarticuliar severe joint pains wrists hands and ankles and feet can barely move in the bed due to pain All febrile 102 Was on Augmentin and Prednisone for ? UTI with recent admission - Current Medication List Current Medications: Active Medications Acetaminophen (Tylenol -) 650 mg PO Q6H PRN PRN Reason: FEVER OR PAIN Last Admin: 10/12/16 06:01 Dose: 650 mg Albuterol/Ipratropium (Duoneb -) 1 amp NEB Q6H PRN PRN Reason: SHORTNESS OF BREATH Furosemide (Lasix -) 40 mg PO DAILY [facility] Losartan Potassium (Cozaar -) 50 mg PO DAILY [facility] Morphine Sulfate (Morphine Injection -) 4 mg IVPB Q6H PRN Last Admin: 10/12/16 05:58 Dose: 4 mg Multivitamins/Minerals/Vitamin C (Tab-A-Vit -) 1 tab PO DAILY [facility] Prednisone (Deltasone -) 10 mg PO DAILY [facility] Senna (Senna -) 1 tab PO HS [facility] Last Admin: 10/11/16 23:03 Dose: 1 tab Tamsulosin HCl (Flomax -) 0.4 mg PO DAILY@0830 [facility] Last Admin: 10/12/16 08:28 Dose: 0.4 mg - Objective Vital Signs: Vital Signs Temperature 99.8 F H 10/12/16 08:30 Pulse Rate 103 H 10/12/16 08:30 Respiratory Rate 18 10/12/16 08:30 Blood Pressure 113/61 10/12/16 08:30 O2 Sat by Pulse Oximetry (%) 95 10/12/16 08:30 Constitutional: Yes: No Distress HENT: No: Thrush Neck: Yes: Supple Cardiovascular: Yes: S1, S2. No: Murmur Respiratory: Yes: WNL, Regular, CTA Bilaterally Gastrointestinal: Yes: WNL, Normal Bowel Sounds, Soft. No: Tenderness Edema: No Labs: CBC, BMP 10/12/16 06:00 10/12/16 06:00 Problem List - Problems (1) Lung cancer Code(s): C34.90 - MALIGNANT NEOPLASM OF UNSP PART OF UNSP BRONCHUS OR LUNG Qualifiers: Laterality: unspecified laterality Lung location: unspecified part of lung Qualified Code(s): C34.90 - Malignant neoplasm of unspecified part of unspecified bronchus or lung (2) UTI (urinary tract infection) Code(s): N39.0 - URINARY TRACT INFECTION, SITE NOT SPECIFIED (3) Polyarticular arthritis Code(s): M13.0 - POLYARTHRITIS, UNSPECIFIED Assessment/Plan Microbiology 10/11/16 19:15 Nasopharyngeal Swab Influenza Types A,B Antigen (OCTAVIA) - Final 10/11/16 19:15 Nasopharyngeal Swab - Final Laboratory Tests 10/11/16 10/12/16 10/12/16 19:35 06:00 06:00 WBC 19.5 H Hgb 10.3 L Plt Count 458 H ESR Pending BUN 24 H Creatinine 1.3 Creat Clearance w eGFR 53.82 Ur Leukocyte Esterase 3+ H Urine RBC 28 Urine WBC 64 Assessment Fever polyarticular joint pains / arthritis ? etiology consider gout Fever could be part of the acute arthritis but also findings for UTI Lung CA Plan Blood urine cultures urine c/s Vanco and Fortaz for fever from the hospital recently Uric acid KORINA Latex ESR CRP Rheumatology consult Add steroids parenterally Discussed with Dr Paulo Neri MD
[2016-10-12] MEDS ORDERED: predniSONE 10 MG TABLET (UD) PO SCH (10:00)
--- NOTE | 2016-10-12 10:24 | CONS ---
DATE OF CONSULTATION: HISTORY: This is a 75-year-old male with known longstanding history of metastatic lung adenocarcinoma who is admitted to the hospital now with chief complaints of severe pain and swelling in his wrists, hands, ankles, and feet for several days. The patient was recently discharged from [facility] for a short admission in which he was treated for respiratory tract infection. His cultures were negative at that time, and he was discharged on Augmentin and prednisone 10 mg. He had been taking that when his onset of joint pains prompted him to come to the emergency room now. He can barely move in bed due to severe pain related to his joint pains. He has no prior history of arthritis or gout in the past. With regard to his metastatic adenocarcinoma, he has been followed by an oncologist at [facility], but he has not had any recent chemotherapy. He had fever after admission to [facility] but denied any chills, nausea, vomiting, diarrhea, abdominal pain, or urinary complaints. I am asked to see him for further evaluation. He has no history of recent travel and lives at home with his . PAST MEDICAL HISTORY: Includes stage 4 lung cancer, hyperlipidemia, peripheral neuropathy related to chemotherapy. MEDICATIONS: At home, prednisone 20 mg, losartan, Augmentin, Pyridoxine, multivitamins. SOCIAL HISTORY: Former smoker. Gave this up 25 years ago with no history of alcohol use. FAMILY HISTORY: Reviewed and noncontributory. REVIEW OF SYSTEMS: Respiratory: No cough or shortness of breath. Cardiac: No chest pain, palpitations, murmur. Gastrointestinal: Denies abdominal pain, nausea, vomiting, diarrhea, blood per rectum. Genitourinary: No dysuria, hematuria, urinary frequency. PHYSICAL EXAMINATION: General: He is a pleasant, elderly male who appears in distress mostly as a result of pain and moving in bed due to joint pains. Vital Signs: Temperature max 102, pulse 96, blood pressure 130/86, respirations 20. HEENT: The oropharynx has no thrush. Neck: Supple. No adenopathy. Lungs: Clear to percussion and auscultation. Heart: S1, S2. Regular rhythm without audible murmur. Abdomen: Soft and nontender without hepatosplenomegaly. Extremities: Reveal diffuse symmetrical swelling of the hands and wrists as well as both feet and ankles. All of these areas are very tender to touch with limited range of motion. The white count was 19.5, hemoglobin 10.3, platelets 458, BUN 24, creatinine 1.3. Liver enzymes within normal limits. Urinalysis with 3+ leukocyte esterase, 28 RBCs, 64 WBCs. Chest x-ray shows no acute infiltrates seen. ASSESSMENT: A 75-year-old male with metastatic lung cancer taking Augmentin and 10 mg of prednisone at home presents now with acute polyarticular arthritis involving his wrists, hands, feet, and ankles. Has never had this previously. His fever may be part and parcel of the acute arthritis with considerations of gout high on the list. Additional findings include probable urinary tract infection, which could also be causing his fever. Lastly, he has metastatic adenocarcinoma of the lung. As discussed with Dr. Bates, would obtain blood cultures. Empirically treat him with vancomycin and ceftazidime as he has recently been hospitalized. Consider Rheumatology evaluation. Uric acid, KORINA, latex, ESR, CRP. Addition of corticosteroids intravenously pending Rheumatology consultation. Stool culture was ordered for C difficile toxin. GARCÍA STANLEY M.D. [id number] MTDD
[2016-10-12] MEDS: LOSARTAN POTASSIUM 50 MG TABLET (FP) PO SCH (10:32)
[2016-10-12] MEDS: CEFTAZIDIME PENTAHYDRATE 1 GM in DEXTROSE 5%-WATER - 50 ML IVPB SCH ×2 (10:32→17:58)
[2016-10-12] MEDS: FUROSEMIDE 40 MG TABLET (FP) PO SCH (10:32)
[2016-10-12] MEDS: MULTIVITAMINS (DAILY MVI) TABLET (FP) PO SCH (10:33)
[2016-10-12] MEDS: methylPREDNISolone NA SUCC 40 MG/1 ML VIAL IVPB SCH ×2 (10:33→17:58)
[2016-10-12] MEDS ORDERED: VANCOMYCIN 1,250 MG in DEXTROSE 5%-WATER - 250 ML IVPB SCH (11:00)
--- NOTE | 2016-10-12 11:59 | HP ---
Admitting History and Physical - Primary Care Physician PCP: Radha Flores - Admission Chief Complaint: FEVER/PAIN/ERYTHEMA/FTT History of Present Illness: 75 Y/O MALE WITH METASTATIC LUNG CA ADENO TYPE, HTN, NEUROPATHY HERE WITH FEVER , CHILLS, LETHARGY, POLYARTHRALGIAS. History Source: Patient - Past Medical History [employer]: Yes: Peripheral Neuropathy (due to chemo (cisplatin)) Cardiovascular: Yes: Deep Vein Thrombosis (prior DVT in 2010 of right leg), HTN , Hyperlipdemia Pulmonary: Yes: Cancer (metastatic lung adenocarcinoma (mets to bone), treated with chemo in past and currently on immunotherapy) Renal/: Yes: Renal Inusuff, BPH Heme/Onc: Yes: Anemia - Smoking History Smoking history: Former smoker Have you smoked in the past 12 months: No If you are a former smoker, when did you quit?: 25 years ago - Alcohol/Substance Use Hx Alcohol Use: No History of Substance Use: reports: None Home Medications - Allergies Allergies/Adverse Reactions: Allergies Allergy/AdvReac Type Severity Reaction Status Date / Time No Known Allergies Allergy Verified 10/11/16 15:02 - Home Medications Home Medications: Ambulatory Orders Cholecalciferol (Vitamin D3) [Vitamin D3] 2,000 unit PO DAILY 06/21/16 Multivitamin [Poly-Vitamin] 1 each PO DAILY 06/21/16 Pyridoxine HCl (B-6) [Vitamin B6 -] 100 mg PO DAILY 06/21/16 Sennosides/Docusate Sodium [Senna Plus Tablet] 1 each PO DAILY 06/21/16 Tamsulosin HCl [Flomax -] 0.8 mg PO DAILY 06/21/16 Furosemide [Lasix] 40 mg PO DAILY 10/04/16 Losartan Potassium [Cozaar -] 50 mg PO DAILY 10/04/16 Acetaminophen [Tylenol .Regular Strength -] 650 mg PO Q4H PRN #0 tablet Amox-Tr/K Cl [Augmentin 875-125mg Tablet -] 1 tab PO BID@0800,1730 #7 tablet Prednisone [Deltasone -] 10 mg PO DAILY tablet 10/07/16 Family Disease History - Family Disease History Family Disease History: Heart Disease: Father, CA: Mother (colon cancer) Review of Systems - Review of Systems Constitutional: reports: Malaise Eyes: reports: No Symptoms HENT: reports: No Symptoms Neck: reports: No Symptoms Cardiovascular: reports: No Symptoms Respiratory: reports: SOB Gastrointestinal: reports: No Symptoms Genitourinary: reports: No Symptoms Musculoskeletal: reports: Back Pain, Extremity Pain, Joint Pain, Joint Swelling , Muscle Pain, Muscle Cramps, Muscle Weakness Integumentary: reports: Erythema Neurological: reports: Pre-Existing Deficit, Unsteady Gait Endocrine: reports: No Symptoms Hematology/Lymphatic: reports: No Symptoms Psychiatric: reports: No Symptoms Physical Examination Vital Signs: Vital Signs Temperature 99.8 F H 10/12/16 08:30 Pulse Rate 103 H 10/12/16 08:30 Respiratory Rate 18 10/12/16 08:30 Blood Pressure 113/61 10/12/16 08:30 O2 Sat by Pulse Oximetry (%) 95 10/12/16 08:30 Findings/Remarks: IN BED, C/O PAIN Constitutional: Yes: Moderate Distress Eyes: Yes: WNL HENT: Yes: WNL Neck: Yes: WNL Cardiovascular: Yes: WNL Respiratory: Yes: Diminished Gastrointestinal: Yes: WNL Musculoskeletal: Yes: Joint Stiffness, Joint Swelling, Muscle Pain, Muscle Weakness Extremities: Yes: Erythema Edema: Yes Edema: LLE: 1+, RLE: 1+ Peripheral Pulses WNL: Yes Integumentary: Yes: Erythema Wound/Incision: Yes: Clean/Dry Neurological: Yes: Weakness ...Motor Strength: LLE, RLE Psychiatric: Yes: Other Labs: CBC, BMP 10/12/16 06:00 10/12/16 06:00 Problem List - Problems (1) Fever Code(s): R50.9 - FEVER, UNSPECIFIED Qualifiers: Fever type: other Qualified Code(s): R50.81 - Fever presenting with conditions classified elsewhere (2) Leukocytosis Code(s): D72.829 - ELEVATED WHITE BLOOD CELL COUNT, UNSPECIFIED Qualifiers: Leukocytosis type: unspecified Qualified Code(s): D72.829 - Elevated white blood cell count, unspecified (3) Lung cancer Code(s): C34.90 - MALIGNANT NEOPLASM OF UNSP PART OF UNSP BRONCHUS OR LUNG Qualifiers: Laterality: unspecified laterality Lung location: unspecified part of lung Qualified Code(s): C34.90 - Malignant neoplasm of unspecified part of unspecified bronchus or lung (4) Polyarticular arthritis Code(s): M13.0 - POLYARTHRITIS, UNSPECIFIED (5) Anemia Code(s): D64.9 - ANEMIA, UNSPECIFIED Qualifiers: Anemia type: unspecified type Qualified Code(s): D64.9 - Anemia, unspecified (6) CKD (chronic kidney disease) Code(s): N18.9 - CHRONIC KIDNEY DISEASE, UNSPECIFIED (7) Polymyalgia rheumatica Code(s): M35.3 - POLYMYALGIA RHEUMATICA Assessment/Plan IV STEROIDS, CHECKING ESR/CRP RHEUMATOLOGY EVAL ID CONSULT BLOOD AND URINE CULTURES PAIN CONTROL OOB TO CHAIR
[2016-10-12] MEDS ORDERED: DOCUSATE SODIUM 100 MG CAPSULE (FP) PO PRN (12:01)
[2016-10-12] MEDS ORDERED: HYDROmorphone HCL CARPU-JECT 1 MG/1 ML DISP.SYRIN IVPB PRN (12:01)
[2016-10-12 12:31] LABS: ERYTHROCYTE SEDIMENTATION RATE 125 mm/hr (0-20)
[2016-10-12] MEDS: KETOROLAC TROMETHAMINE 30 MG/1 ML VIAL IVPUSH SCH ×2 (12:32→17:58)
[2016-10-12 13:32] LABS: C-REACTIVE PROTEIN 29.4 MG/DL (0.00-0.3)
--- NOTE | 2016-10-12 13:39 | PN ---
Progress Note (short form) - Note Progress Note: PULMONARY CONSULTATION DICTATED 10/12/16 IMP METASTATIC LUNG CA(ADENO CA) ACUTE POLYARTICULAR ARTHRITIS H/O HTN H/O DVT PLAN IV ANTIBIOTICS PER ID ANALGESICS STEROIDS RHEUMATOLOGY EVALUATION INHALED BRONCHODILATORS PRN DR ORR Problem List - Problems (1) Fever Code(s): R50.9 - FEVER, UNSPECIFIED Qualifiers: Fever type: other Qualified Code(s): R50.81 - Fever presenting with conditions classified elsewhere (2) Leukocytosis Code(s): D72.829 - ELEVATED WHITE BLOOD CELL COUNT, UNSPECIFIED Qualifiers: Leukocytosis type: unspecified Qualified Code(s): D72.829 - Elevated white blood cell count, unspecified (3) Lung cancer Code(s): C34.90 - MALIGNANT NEOPLASM OF UNSP PART OF UNSP BRONCHUS OR LUNG Qualifiers: Laterality: unspecified laterality Lung location: unspecified part of lung Qualified Code(s): C34.90 - Malignant neoplasm of unspecified part of unspecified bronchus or lung (4) Polyarticular arthritis Code(s): M13.0 - POLYARTHRITIS, UNSPECIFIED (5) UTI (urinary tract infection) Code(s): N39.0 - URINARY TRACT INFECTION, SITE NOT SPECIFIED (6) CKD (chronic kidney disease) Code(s): N18.9 - CHRONIC KIDNEY DISEASE, UNSPECIFIED (7) HTN (hypertension) Code(s): I10 - ESSENTIAL (PRIMARY) HYPERTENSION
--- NOTE | 2016-10-12 14:27 | CONS ---
DATE OF CONSULTATION: 10/12/2016 REFERRING PHYSICIAN: Radha Flores MD HISTORY OF PRESENT ILLNESS: The patient is a 75-year-old white male, past medical history of metastatic lung CA, currently status post chemotherapy/RT, peripheral neuropathy secondary to chemotherapy, chronic kidney disease, anemia, history of hypertension and hyperlipidemia, history of tobacco use, quit 25 years ago, admitted to [facility] secondary to generalized body aches and chills. Patient states that he was recently discharged from [facility]. He was doing well until a couple days prior to admission, when he started developing swelling of his wrists and generalized weakness and generalized pains. He denied any nausea, vomiting, diaphoresis. He presented to the emergency room with the above. Of note, he also was noted apparently on admission to be hypokalemic. Denies any chest pain, shortness of breath or chronic cough. Denies hemoptysis. PAST MEDICAL HISTORY: Again includes hyperlipidemia, hypertension, metastatic lung CA, peripheral neuropathy, chronic kidney disease, and anemia. SOCIAL HISTORY: Tobacco use, quit 25 years ago. 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 CURRENT MEDICATIONS: Include Solu-Medrol 40 q.8, Flomax, Tylenol, Cozaar, ceftazidime, vancomycin, albuterol, Colace, Senna, Toradol, Lasix, , Dilaudid. REVIEW OF SYSTEMS: No shortness of breath. No cough. No hemoptysis. Positive generalized pains. Positive chills. PHYSICAL EXAMINATION:General: The patient is a well-developed, well-nourished male, awake, alert, in no acute distress. Vital Signs: Temperature is 102.8, respiratory rate is 18, O2 saturation is 95 % on room air, heart rate is 103. HEENT: Normocephalic, atraumatic. Neck: Supple. Heart: Regular with S1, S2. Chest: Clear. Abdomen: Soft. Bowel sounds positive. Extremities: No cyanosis or edema. LABORATORIES: WBC is 19.5, hemoglobin 10.3, hematocrit 31.7, and a platelet count of 458,000. INR is 1.33. BUN 24, creatinine 1.3. Chest x-ray: No acute infiltrate. There is some mild residual atelectatic change in the right lung apex. IMPRESSION: 1. History of metastatic lung carcinoma, status post chemotherapy/radiotherapy. 2. Polyarticular arthritis, etiology to be determined. 3. History of urinary tract infection. PLAN: IV antibiotics as per Infectious Disease. Supplemental O2. Continue inhaled bronchodilators, steroids. Consider Rheumatology evaluation. Analgesics. Thank you. ZEN ORR M.D. [id number] MTDD
[2016-10-12] MEDS ORDERED: PT OWN MED DRAWER 7, Y5N ONE ×2 (16:35→17:50)
[2016-10-12] MEDS: VANCOMYCIN 250 MG/5 ML ORAL SOLUTION PO SCH ×2 (19:04→23:52)
[2016-10-12] MEDS: SENNOSIDES 8.6MG TABLET (FP) PO SCH (21:56)
[2016-10-13] MEDS ORDERED: PT OWN MED DRAWER 7, Y5N ONE (00:48)
[2016-10-13] MEDS: CEFTAZIDIME PENTAHYDRATE 1 GM in DEXTROSE 5%-WATER - 50 ML IVPB SCH ×2 (01:28→10:11)
[2016-10-13] MEDS: KETOROLAC TROMETHAMINE 30 MG/1 ML VIAL IVPUSH SCH ×2 (01:29→10:12)
[2016-10-13] MEDS: methylPREDNISolone NA SUCC 40 MG/1 ML VIAL IVPB SCH ×3 (01:31→17:28)
[2016-10-13] MEDS: VANCOMYCIN 250 MG/5 ML ORAL SOLUTION PO SCH ×3 (05:11→17:28)
[2016-10-13] MEDS: FUROSEMIDE 40 MG TABLET (FP) PO SCH (10:11)
[2016-10-13] MEDS: MULTIVITAMINS (DAILY MVI) TABLET (FP) PO SCH (10:11)
[2016-10-13] MEDS: LOSARTAN POTASSIUM 50 MG TABLET (FP) PO SCH (10:12)
[2016-10-13] MEDS: TAMSULOSIN HCL 0.4 MG CAP.ER.24H (FP) PO SCH (10:12)
--- NOTE | 2016-10-13 10:41 | PN ---
Progress Note, Physician Chief Complaint: ID Dramatic improvement in his joint complaints !! Able to ambulate now Oral vancomycin added - Current Medication List Current Medications: Active Medications Acetaminophen (Tylenol -) 650 mg PO Q6H PRN PRN Reason: FEVER OR PAIN Last Admin: 10/12/16 06:01 Dose: 650 mg Albuterol/Ipratropium (Duoneb -) 1 amp NEB Q6H PRN PRN Reason: SHORTNESS OF BREATH Docusate Sodium (Colace -) 100 mg PO Q8H PRN PRN Reason: CONSTIPATION Furosemide (Lasix -) 40 mg PO DAILY [facility] [place] Last Admin: 10/13/16 10:11 Dose: 40 mg Hydromorphone HCl (Dilaudid Injection -) 1 mg IVPB Q6H PRN PRN Reason: PAIN Vancomycin HCl 1,250 mg/ (Dextrose) 250 mls @ 250 mls/hr IVPB DAILY@1100 [facility] Last Admin: 10/12/16 11:35 Dose: 250 mls/hr Ceftazidime 1 gm/ Dextrose 50 mls @ 100 mls/hr IVPB Q8H-IV [facility] [place] Last Admin: 10/13/16 10:11 Dose: 100 mls/hr Ketorolac Tromethamine (Toradol Injection -) 30 mg IVPUSH Q8H-IV [facility] [place] Stop: 10/17/16 12:14 Last Admin: 10/13/16 10:12 Dose: 30 mg Losartan Potassium (Cozaar -) 50 mg PO DAILY [facility] [place] Last Admin: 10/13/16 10:12 Dose: 50 mg Methylprednisolone Sodium Succinate (Solu-Medrol -) 40 mg IVPB Q8H-IV [facility] [place] Last Admin: 10/13/16 10:11 Dose: 40 mg Multivitamins/Minerals/Vitamin C (Tab-A-Vit -) 1 tab PO DAILY [facility] [place] Last Admin: 10/13/16 10:11 Dose: 1 tab Senna (Senna -) 1 tab PO HS [facility] [place] Last Admin: 10/12/16 21:56 Dose: 1 tab Tamsulosin HCl (Flomax -) 0.4 mg PO DAILY@0830 [facility] [place] Last Admin: 10/13/16 10:12 Dose: 0.4 mg Vancomycin HCl (Vancomycin Oral Solution) 250 mg PO Q6HPO [facility] [place] Last Admin: 10/13/16 05:11 Dose: 250 mg - Objective Vital Signs: Vital Signs Temperature 97.8 F 10/13/16 10:00 Pulse Rate 87 10/13/16 10:00 Respiratory Rate 18 10/13/16 10:00 Blood Pressure 114/78 10/13/16 10:00 O2 Sat by Pulse Oximetry (%) 96 10/12/16 21:00 Constitutional: Yes: No Distress Neck: Yes: WNL, Supple Cardiovascular: Yes: S1, S2 Respiratory: Yes: WNL, Regular, CTA Bilaterally Gastrointestinal: Yes: Soft. No: Tenderness Edema: Yes Labs: CBC, BMP 10/12/16 06:00 10/12/16 06:00 Problem List - Problems (1) Lung cancer Code(s): C34.90 - MALIGNANT NEOPLASM OF UNSP PART OF UNSP BRONCHUS OR LUNG Qualifiers: Laterality: unspecified laterality Lung location: unspecified part of lung Qualified Code(s): C34.90 - Malignant neoplasm of unspecified part of unspecified bronchus or lung (2) UTI (urinary tract infection) Code(s): N39.0 - URINARY TRACT INFECTION, SITE NOT SPECIFIED (3) Polyarticular arthritis Code(s): M13.0 - POLYARTHRITIS, UNSPECIFIED Assessment/Plan Microbiology 10/12/16 11:00 Urine - Urine Clean Catch Urine Culture - Final NO GROWTH OBTAINED 10/11/16 19:35 Urine - Urine Clean Catch Legionella Antigen - Final 10/11/16 19:35 Urine - Urine Clean Catch Streptococcus pneumoniae Antigen ( M - Final 10/11/16 19:15 Nasopharyngeal Swab Influenza Types A,B Antigen (OCTAVIA) - Final 10/11/16 19:15 Nasopharyngeal Swab - Final 10/12/16 10:15 Blood - Peripheral Venous Blood Culture - Preliminary NO GROWTH OBTAINED AFTER 24 HOURS, INCUBATION TO CONTINUE FOR 4 DAYS. 10/12/16 10:15 Blood - Peripheral Venous Blood Culture - Preliminary NO GROWTH OBTAINED AFTER 24 HOURS, INCUBATION TO CONTINUE FOR 4 DAYS. Laboratory Tests 10/11/16 10/12/16 10/12/16 19:35 06:00 06:00 WBC 19.5 H Hgb 10.3 L Hct 31.7 L Plt Count 458 H ESR 125 H BUN 24 H Creatinine 1.3 Creat Clearance w eGFR 53.82 Uric Acid Ur Leukocyte Esterase 3+ H Urine RBC 28 Urine WBC 64 Parvovirus B19 IgG Ab Parvovirus B19 IgM Ab 10/12/16 10/12/16 13:00 13:00 WBC Hgb Hct Plt Count ESR BUN Creatinine Creat Clearance w eGFR Uric Acid 6.2 D Ur Leukocyte Esterase Urine RBC Urine WBC Parvovirus B19 IgG Ab Pending Parvovirus B19 IgM Ab Pending ASsessment Dramatic improvement Fever resolved on steroids along with joint complaints Cultures no growth C diff positive toxin could have been the WBC elevation and fever Polyartic arthritis unclear etiology Plan Stop antibiotics IV no indication now Oral vancomycin 250mg qid Continue steroids Jose Neri MD
--- NOTE | 2016-10-13 11:02 | PN ---
Progress Note, Physician History of Present Illness: pulmonary alert,feeling better,-joint pain,sob - Current Medication List Current Medications: Active Medications Acetaminophen (Tylenol -) 650 mg PO Q6H PRN PRN Reason: FEVER OR PAIN Last Admin: 10/12/16 06:01 Dose: 650 mg Albuterol/Ipratropium (Duoneb -) 1 amp NEB Q6H PRN PRN Reason: SHORTNESS OF BREATH Docusate Sodium (Colace -) 100 mg PO Q8H PRN PRN Reason: CONSTIPATION Furosemide (Lasix -) 40 mg PO DAILY [facility] Last Admin: 10/13/16 10:11 Dose: 40 mg Hydromorphone HCl (Dilaudid Injection -) 1 mg IVPB Q6H PRN PRN Reason: PAIN Ketorolac Tromethamine (Toradol Injection -) 30 mg IVPUSH Q8H-IV [facility] Stop: 10/17/16 12:14 Last Admin: 10/13/16 10:12 Dose: 30 mg Losartan Potassium (Cozaar -) 50 mg PO DAILY [facility] Last Admin: 10/13/16 10:12 Dose: 50 mg Methylprednisolone Sodium Succinate (Solu-Medrol -) 40 mg IVPB Q8H-IV [facility] Last Admin: 10/13/16 10:11 Dose: 40 mg Multivitamins/Minerals/Vitamin C (Tab-A-Vit -) 1 tab PO DAILY [facility] Last Admin: 10/13/16 10:11 Dose: 1 tab Senna (Senna -) 1 tab PO HS [facility] Last Admin: 10/12/16 21:56 Dose: 1 tab Tamsulosin HCl (Flomax -) 0.4 mg PO DAILY@0830 [facility] Last Admin: 10/13/16 10:12 Dose: 0.4 mg Vancomycin HCl (Vancomycin Oral Solution) 250 mg PO Q6HPO [facility] Last Admin: 10/13/16 05:11 Dose: 250 mg - Objective Vital Signs: Vital Signs Temperature 97.8 F 10/13/16 10:00 Pulse Rate 87 10/13/16 10:00 Respiratory Rate 18 10/13/16 10:00 Blood Pressure 114/78 10/13/16 10:00 O2 Sat by Pulse Oximetry (%) 96 10/12/16 21:00 Constitutional: Yes: Well Nourished, Calm Eyes: Yes: WNL HENT: Yes: WNL Neck: Yes: WNL Cardiovascular: Yes: Regular Rate and Rhythm, S1, S2 Respiratory: Yes: CTA Bilaterally Gastrointestinal: Yes: WNL Extremities: Yes: WNL Edema: No Problem List - Problems (1) Fever Code(s): R50.9 - FEVER, UNSPECIFIED Qualifiers: Fever type: other Qualified Code(s): R50.81 - Fever presenting with conditions classified elsewhere (2) Leukocytosis Code(s): D72.829 - ELEVATED WHITE BLOOD CELL COUNT, UNSPECIFIED Qualifiers: Leukocytosis type: unspecified Qualified Code(s): D72.829 - Elevated white blood cell count, unspecified (3) Lung cancer Code(s): C34.90 - MALIGNANT NEOPLASM OF UNSP PART OF UNSP BRONCHUS OR LUNG Qualifiers: Laterality: unspecified laterality Lung location: unspecified part of lung Qualified Code(s): C34.90 - Malignant neoplasm of unspecified part of unspecified bronchus or lung (4) Polyarticular arthritis Code(s): M13.0 - POLYARTHRITIS, UNSPECIFIED (5) UTI (urinary tract infection) Code(s): N39.0 - URINARY TRACT INFECTION, SITE NOT SPECIFIED (6) CKD (chronic kidney disease) Code(s): N18.9 - CHRONIC KIDNEY DISEASE, UNSPECIFIED (7) HTN (hypertension) Code(s): I10 - ESSENTIAL (PRIMARY) HYPERTENSION Assessment/Plan IMP METASTATIC LUNG CA(ADENO CA) ACUTE POLYARTICULAR ARTHRITIS IMPROVING H/O HTN H/O DVT PLAN IV ANTIBIOTICS PER ID ANALGESICS STEROIDS RHEUMATOLOGY EVALUATION INHALED BRONCHODILATORS PRN DR ORR Problem List - Problems (1) Fever Code(s): R50.9 - FEVER, UNSPECIFIED Qualifiers: Fever type: other Qualified Code(s): R50.81 - Fever presenting with conditions classified elsewhere (2) Leukocytosis Code(s): D72.829 - ELEVATED WHITE BLOOD CELL COUNT, UNSPECIFIED Qualifiers: Leukocytosis type: unspecified Qualified Code(s): D72.829 - Elevated white blood cell count, unspecified (3) Lung cancer Code(s): C34.90 - MALIGNANT NEOPLASM OF UNSP PART OF UNSP BRONCHUS OR LUNG Qualifiers: Laterality: unspecified laterality Lung location: unspecified part of lung Qualified Code(s): C34.90 - Malignant neoplasm of unspecified part of unspecified bronchus or lung (4) Polyarticular arthritis Code(s): M13.0 - POLYARTHRITIS, UNSPECIFIED (5) UTI (urinary tract infection) Code(s): N39.0 - URINARY TRACT INFECTION, SITE NOT SPECIFIED (6) CKD (chronic kidney disease) Code(s): N18.9 - CHRONIC KIDNEY DISEASE, UNSPECIFIED (7) HTN (hypertension) Code(s): I10 - ESSENTIAL (PRIMARY) HYPERTENSION
[2016-10-13] MEDS ORDERED: IBUPROFEN 800 MG/8 ML IJ IVPB PRN (12:01)
--- NOTE | 2016-10-13 12:10 | PN ---
Progress Note, Physician Chief Complaint: AWAKE ALERT FEELING MUCH BETTER TODAY - Current Medication List Current Medications: Active Medications Acetaminophen (Tylenol -) 650 mg PO Q6H PRN PRN Reason: FEVER OR PAIN Last Admin: 10/12/16 06:01 Dose: 650 mg Albuterol/Ipratropium (Duoneb -) 1 amp NEB Q6H PRN PRN Reason: SHORTNESS OF BREATH Docusate Sodium (Colace -) 100 mg PO Q8H PRN PRN Reason: CONSTIPATION Furosemide (Lasix -) 40 mg PO DAILY [facility] Last Admin: 10/13/16 10:11 Dose: 40 mg Hydromorphone HCl (Dilaudid Injection -) 1 mg IVPB Q6H PRN PRN Reason: PAIN Ibuprofen (Caldolor Injection -) 400 mg IVPB Q6H PRN PRN Reason: FEVER Losartan Potassium (Cozaar -) 50 mg PO DAILY [facility] Last Admin: 10/13/16 10:12 Dose: 50 mg Methylprednisolone Sodium Succinate (Solu-Medrol -) 40 mg IVPB Q8H-IV [facility] Last Admin: 10/13/16 10:11 Dose: 40 mg Multivitamins/Minerals/Vitamin C (Tab-A-Vit -) 1 tab PO DAILY [facility] Last Admin: 10/13/16 10:11 Dose: 1 tab Senna (Senna -) 1 tab PO HS [facility] Last Admin: 10/12/16 21:56 Dose: 1 tab Tamsulosin HCl (Flomax -) 0.4 mg PO DAILY@0830 [facility] Last Admin: 10/13/16 10:12 Dose: 0.4 mg Vancomycin HCl (Vancomycin Oral Solution) 250 mg PO Q6HPO [facility] Last Admin: 10/13/16 05:11 Dose: 250 mg - Objective Vital Signs: Vital Signs Temperature 97.8 F 10/13/16 10:00 Pulse Rate 87 10/13/16 10:00 Respiratory Rate 18 10/13/16 10:00 Blood Pressure 114/78 10/13/16 10:00 O2 Sat by Pulse Oximetry (%) 96 10/12/16 21:00 Constitutional: Yes: Mild Distress Eyes: Yes: WNL HENT: Yes: WNL Neck: Yes: WNL Cardiovascular: Yes: WNL Respiratory: Yes: Diminished Gastrointestinal: Yes: WNL Genitourinary: Yes: WNL Musculoskeletal: Yes: Joint Stiffness, Muscle Pain Extremities: Yes: WNL Edema: No Peripheral Pulses WNL: Yes Integumentary: Yes: WNL Wound/Incision: Yes: Clean/Dry Neurological: Yes: WNL ...Motor Strength: WNL Psychiatric: Yes: WNL Labs: CBC, BMP 10/12/16 06:00 10/12/16 06:00 Problem List - Problems (1) Fever Code(s): R50.9 - FEVER, UNSPECIFIED Qualifiers: Fever type: other Qualified Code(s): R50.81 - Fever presenting with conditions classified elsewhere (2) Leukocytosis Code(s): D72.829 - ELEVATED WHITE BLOOD CELL COUNT, UNSPECIFIED Qualifiers: Leukocytosis type: unspecified Qualified Code(s): D72.829 - Elevated white blood cell count, unspecified (3) Lung cancer Code(s): C34.90 - MALIGNANT NEOPLASM OF UNSP PART OF UNSP BRONCHUS OR LUNG Qualifiers: Laterality: unspecified laterality Lung location: unspecified part of lung Qualified Code(s): C34.90 - Malignant neoplasm of unspecified part of unspecified bronchus or lung (4) Polyarticular arthritis Code(s): M13.0 - POLYARTHRITIS, UNSPECIFIED (5) Anemia Code(s): D64.9 - ANEMIA, UNSPECIFIED Qualifiers: Anemia type: unspecified type Qualified Code(s): D64.9 - Anemia, unspecified (6) CKD (chronic kidney disease) Code(s): N18.9 - CHRONIC KIDNEY DISEASE, UNSPECIFIED (7) Polymyalgia rheumatica Code(s): M35.3 - POLYMYALGIA RHEUMATICA (8) Clostridium difficile colitis Code(s): A04.7 - ENTEROCOLITIS DUE TO CLOSTRIDIUM DIFFICILE Assessment/Plan RESPONDED WELL TO IV STEROIDS LIKELY ARTHRITIC EVENT POST CHEMOTX CDIFF + ON ISOLATION VANCO PO ID AND RHEUM F/U
[2016-10-13] MEDS: LACTOBACILLUS ACIDOPHILUS 1 EACH TAB (FP) PO SCH (12:32)
[2016-10-13] MEDS: SENNOSIDES 8.6MG TABLET (FP) PO SCH (21:36)
[2016-10-14] MEDS: VANCOMYCIN 250 MG/5 ML ORAL SOLUTION PO SCH ×4 (00:19→17:51)
[2016-10-14] MEDS ORDERED: PT OWN MED DRAWER 7, Y5N ONE ×3 (01:09→23:58)
[2016-10-14] MEDS: methylPREDNISolone NA SUCC 40 MG/1 ML VIAL IVPB SCH ×3 (01:20→21:05)
[2016-10-14 07:11] LABS: MCH 26.5 pg (25.7-33.7); MCHC 33.1 g/dl (32.0-35.9); MEAN CELL VOLUME 80.1 fl (80-96); MEAN PLT VOLUME 6.9 fl (7.5-11.1); PLATELET COUNT 439 K/MM3 (134-434); RDW 16.7 % (11.9-15.9); WHITE BLOOD COUNT 17.7 K/mm3 (4.0-10.0)
[2016-10-14 07:35] LABS: ALBUMIN 2.3 g/dl (3.4-5.0); CALCIUM 8.4 mg/dL (8.5-10.1); MAGNESIUM 2.4 mg/dL (1.8-2.4)
[2016-10-14 07:39] LABS: BILIRUBIN,TOTAL 0.3 mg/dL (0.2-1.0); CREATININE 1.5 mg/dL (0.7-1.3); TOT PROT 6.1 g/dl (6.4-8.2)
--- NOTE | 2016-10-14 08:27 | PN ---
Progress Note, Physician History of Present Illness: FEELS BETTER - Current Medication List Current Medications: Active Medications Acetaminophen (Tylenol -) 650 mg PO Q6H PRN PRN Reason: FEVER OR PAIN Last Admin: 10/12/16 06:01 Dose: 650 mg Albuterol/Ipratropium (Duoneb -) 1 amp NEB Q6H PRN PRN Reason: SHORTNESS OF BREATH Docusate Sodium (Colace -) 100 mg PO Q8H PRN PRN Reason: CONSTIPATION Furosemide (Lasix -) 40 mg PO DAILY [facility] Last Admin: 10/13/16 10:11 Dose: 40 mg Hydromorphone HCl (Dilaudid Injection -) 1 mg IVPB Q6H PRN PRN Reason: PAIN Ibuprofen (Caldolor Injection -) 400 mg IVPB Q6H PRN PRN Reason: FEVER Lactobacillus Acidophilus (Bacid -) 1 tab PO DAILY [facility] Last Admin: 10/13/16 12:32 Dose: 1 tab Losartan Potassium (Cozaar -) 50 mg PO DAILY [facility] Last Admin: 10/13/16 10:12 Dose: 50 mg Methylprednisolone Sodium Succinate (Solu-Medrol -) 40 mg IVPB Q8H-IV [facility] Last Admin: 10/14/16 01:20 Dose: 40 mg Multivitamins/Minerals/Vitamin C (Tab-A-Vit -) 1 tab PO DAILY [facility] Last Admin: 10/13/16 10:11 Dose: 1 tab Senna (Senna -) 1 tab PO HS [facility] Last Admin: 10/13/16 21:36 Dose: Not Given Tamsulosin HCl (Flomax -) 0.4 mg PO DAILY@0830 [facility] Last Admin: 10/13/16 10:12 Dose: 0.4 mg Vancomycin HCl (Vancomycin Oral Solution) 250 mg PO Q6HPO [facility] Last Admin: 10/14/16 05:30 Dose: 250 mg - Objective Vital Signs: Vital Signs Temperature 97.4 F L 10/14/16 06:00 Pulse Rate 70 10/14/16 06:00 Respiratory Rate 18 10/14/16 06:00 Blood Pressure 137/82 10/14/16 06:00 O2 Sat by Pulse Oximetry (%) 96 10/13/16 12:13 Cardiovascular: Yes: Regular Rate and Rhythm Respiratory: Yes: Regular, CTA Bilaterally Gastrointestinal: Yes: Normal Bowel Sounds, Soft Labs: CBC, BMP 10/14/16 05:30 10/14/16 05:30 Problem List - Problems (1) Clostridium difficile colitis Assessment/Plan: PO VANCO ID ON BOARD STEROIDS Code(s): A04.7 - ENTEROCOLITIS DUE TO CLOSTRIDIUM DIFFICILE (2) Leukocytosis Assessment/Plan: DUE TO STEROIDS Microbiology 10/12/16 10:15 Blood Culture - Preliminary Blood - Peripheral Venous NO GROWTH OBTAINED AFTER 24 HOURS, INCUBATION TO CONTINUE FOR 4 DAYS. 10/12/16 10:15 Blood Culture - Preliminary Blood - Peripheral Venous NO GROWTH OBTAINED AFTER 24 HOURS, INCUBATION TO CONTINUE FOR 4 DAYS. 10/12/16 11:00 Urine Culture - Final Urine - Urine Clean Catch NO GROWTH OBTAINED Code(s): D72.829 - ELEVATED WHITE BLOOD CELL COUNT, UNSPECIFIED Qualifiers: Leukocytosis type: unspecified Qualified Code(s): D72.829 - Elevated white blood cell count, unspecified (3) Lung cancer Assessment/Plan: OFF CHEMO SINCE MARCH Code(s): C34.90 - MALIGNANT NEOPLASM OF UNSP PART OF UNSP BRONCHUS OR LUNG Qualifiers: Laterality: unspecified laterality Lung location: unspecified part of lung Qualified Code(s): C34.90 - Malignant neoplasm of unspecified part of unspecified bronchus or lung (4) Polyarticular arthritis Assessment/Plan: MAYBE DUE TO CHEMO RHEUMOTOLOGY CONSULT STEROIDS Code(s): M13.0 - POLYARTHRITIS, UNSPECIFIED
[2016-10-14] MEDS: LOSARTAN POTASSIUM 50 MG TABLET (FP) PO SCH (09:01)
[2016-10-14] MEDS: FUROSEMIDE 40 MG TABLET (FP) PO SCH (09:01)
[2016-10-14] MEDS: TAMSULOSIN HCL 0.4 MG CAP.ER.24H (FP) PO SCH (09:01)
[2016-10-14] MEDS: LACTOBACILLUS ACIDOPHILUS 1 EACH TAB (FP) PO SCH (09:01)
[2016-10-14] MEDS: MULTIVITAMINS (DAILY MVI) TABLET (FP) PO SCH (09:01)
[2016-10-14 10:52] LABS: ERYTHROCYTE SEDIMENTATION RATE 98 mm/hr (0-20)
--- NOTE | 2016-10-14 12:48 | EKG ---
Test Reason : Blood Pressure : / mmHG Vent. Rate : 106 BPM Atrial Rate : 106 BPM P-R Int : 146 ms QRS Dur : 086 ms QT Int : 314 ms P-R-T Axes : 029 029 055 degrees QTc Int : 417 ms SINUS TACHYCARDIA WITH OCCASIONAL PREMATURE VENTRICULAR COMPLEXES OTHERWISE NORMAL ECG WHEN COMPARED WITH ECG OF 04-OCT-2016 17:04, NO SIGNIFICANT CHANGE WAS FOUND Confirmed by MERLIN NICOLAS MD ([id number]) on 10/14/2016 12:48:11 PM Referred By: Confirmed By:MERLIN NICOLAS MD
--- NOTE | 2016-10-14 13:01 | PN ---
Progress Note, Physician History of Present Illness: pulmonary alert,feeling better,less generalized pains,-c/o sob,-cp. - Current Medication List Current Medications: Active Medications Acetaminophen (Tylenol -) 650 mg PO Q6H PRN PRN Reason: FEVER OR PAIN Last Admin: 10/12/16 06:01 Dose: 650 mg Albuterol/Ipratropium (Duoneb -) 1 amp NEB Q6H PRN PRN Reason: SHORTNESS OF BREATH Docusate Sodium (Colace -) 100 mg PO Q8H PRN PRN Reason: CONSTIPATION Furosemide (Lasix -) 40 mg PO DAILY [facility] Last Admin: 10/14/16 09:01 Dose: 40 mg Hydromorphone HCl (Dilaudid Injection -) 1 mg IVPB Q6H PRN PRN Reason: PAIN Ibuprofen (Caldolor Injection -) 400 mg IVPB Q6H PRN PRN Reason: FEVER Lactobacillus Acidophilus (Bacid -) 1 tab PO DAILY [facility] Last Admin: 10/14/16 09:01 Dose: 1 tab Losartan Potassium (Cozaar -) 50 mg PO DAILY [facility] Last Admin: 10/14/16 09:01 Dose: 50 mg Methylprednisolone Sodium Succinate (Solu-Medrol -) 40 mg IVPB BID [facility] Last Admin: 10/14/16 09:01 Dose: 40 mg Multivitamins/Minerals/Vitamin C (Tab-A-Vit -) 1 tab PO DAILY [facility] Last Admin: 10/14/16 09:01 Dose: 1 tab Senna (Senna -) 1 tab PO HS [facility] Last Admin: 10/13/16 21:36 Dose: Not Given Tamsulosin HCl (Flomax -) 0.4 mg PO DAILY@0830 [facility] Last Admin: 10/14/16 09:01 Dose: 0.4 mg Vancomycin HCl (Vancomycin Oral Solution) 250 mg PO Q6HPO [facility] Last Admin: 10/14/16 12:47 Dose: 250 mg - Objective Vital Signs: Vital Signs Temperature 97.7 F 10/14/16 09:07 Pulse Rate 86 10/14/16 10:17 Respiratory Rate 18 10/14/16 09:07 Blood Pressure 119/77 10/14/16 09:07 O2 Sat by Pulse Oximetry (%) 98 10/14/16 10:17 Constitutional: Yes: Well Nourished, Calm Eyes: Yes: WNL HENT: Yes: WNL Neck: Yes: WNL Cardiovascular: Yes: Regular Rate and Rhythm, S1, S2 Respiratory: Yes: CTA Bilaterally Gastrointestinal: Yes: WNL Extremities: Yes: WNL Edema: No Labs: CBC, BMP 10/14/16 05:30 10/14/16 05:30 Problem List - Problems (1) Fever Code(s): R50.9 - FEVER, UNSPECIFIED Qualifiers: Fever type: other Qualified Code(s): R50.81 - Fever presenting with conditions classified elsewhere (2) Leukocytosis Code(s): D72.829 - ELEVATED WHITE BLOOD CELL COUNT, UNSPECIFIED Qualifiers: Leukocytosis type: unspecified Qualified Code(s): D72.829 - Elevated white blood cell count, unspecified (3) Lung cancer Code(s): C34.90 - MALIGNANT NEOPLASM OF UNSP PART OF UNSP BRONCHUS OR LUNG Qualifiers: Laterality: unspecified laterality Lung location: unspecified part of lung Qualified Code(s): C34.90 - Malignant neoplasm of unspecified part of unspecified bronchus or lung (4) Polyarticular arthritis Code(s): M13.0 - POLYARTHRITIS, UNSPECIFIED (5) UTI (urinary tract infection) Code(s): N39.0 - URINARY TRACT INFECTION, SITE NOT SPECIFIED (6) CKD (chronic kidney disease) Code(s): N18.9 - CHRONIC KIDNEY DISEASE, UNSPECIFIED (7) HTN (hypertension) Code(s): I10 - ESSENTIAL (PRIMARY) HYPERTENSION Assessment/Plan IMP METASTATIC LUNG CA(ADENO CA) ACUTE POLYARTICULAR ARTHRITIS IMPROVING H/O HTN H/O DVT C-DIFF PLAN ANALGESICS CONTINUE STEROIDS INHALED BRONCHODILATORS PRN DR ORR Problem List - Problems (1) Fever Code(s): R50.9 - FEVER, UNSPECIFIED Qualifiers: Fever type: other Qualified Code(s): R50.81 - Fever presenting with conditions classified elsewhere (2) Leukocytosis Code(s): D72.829 - ELEVATED WHITE BLOOD CELL COUNT, UNSPECIFIED Qualifiers: Leukocytosis type: unspecified Qualified Code(s): D72.829 - Elevated white blood cell count, unspecified (3) Lung cancer Code(s): C34.90 - MALIGNANT NEOPLASM OF UNSP PART OF UNSP BRONCHUS OR LUNG Qualifiers: Laterality: unspecified laterality Lung location: unspecified part of lung Qualified Code(s): C34.90 - Malignant neoplasm of unspecified part of unspecified bronchus or lung (4) Polyarticular arthritis Code(s): M13.0 - POLYARTHRITIS, UNSPECIFIED (5) UTI (urinary tract infection) Code(s): N39.0 - URINARY TRACT INFECTION, SITE NOT SPECIFIED (6) CKD (chronic kidney disease) Code(s): N18.9 - CHRONIC KIDNEY DISEASE, UNSPECIFIED (7) HTN (hypertension) Code(s): I10 - ESSENTIAL (PRIMARY) HYPERTENSION
--- NOTE | 2016-10-14 16:51 | PN ---
Progress Note, Physician History of Present Illness: Awake, alert No c/s abdominal pain/ diarrhea No joint pain Temps down-afebrile - Current Medication List Current Medications: Active Medications Acetaminophen (Tylenol -) 650 mg PO Q6H PRN PRN Reason: FEVER OR PAIN Last Admin: 10/12/16 06:01 Dose: 650 mg Albuterol/Ipratropium (Duoneb -) 1 amp NEB Q6H PRN PRN Reason: SHORTNESS OF BREATH Docusate Sodium (Colace -) 100 mg PO Q8H PRN PRN Reason: CONSTIPATION Furosemide (Lasix -) 40 mg PO DAILY [facility] Last Admin: 10/14/16 09:01 Dose: 40 mg Hydromorphone HCl (Dilaudid Injection -) 1 mg IVPB Q6H PRN PRN Reason: PAIN Ibuprofen (Caldolor Injection -) 400 mg IVPB Q6H PRN PRN Reason: FEVER Lactobacillus Acidophilus (Bacid -) 1 tab PO DAILY [facility] Last Admin: 10/14/16 09:01 Dose: 1 tab Losartan Potassium (Cozaar -) 50 mg PO DAILY [facility] Last Admin: 10/14/16 09:01 Dose: 50 mg Methylprednisolone Sodium Succinate (Solu-Medrol -) 40 mg IVPB BID [facility] Last Admin: 10/14/16 09:01 Dose: 40 mg Multivitamins/Minerals/Vitamin C (Tab-A-Vit -) 1 tab PO DAILY [facility] Last Admin: 10/14/16 09:01 Dose: 1 tab Senna (Senna -) 1 tab PO HS [facility] Last Admin: 10/13/16 21:36 Dose: Not Given Tamsulosin HCl (Flomax -) 0.4 mg PO DAILY@0830 [facility] Last Admin: 10/14/16 09:01 Dose: 0.4 mg Vancomycin HCl (Vancomycin Oral Solution) 250 mg PO Q6HPO [facility] Last Admin: 10/14/16 12:47 Dose: 250 mg - Objective Vital Signs: Vital Signs Temperature 98.4 F 10/14/16 15:00 Pulse Rate 100 H 10/14/16 15:00 Respiratory Rate 18 10/14/16 15:00 Blood Pressure 146/74 10/14/16 15:00 O2 Sat by Pulse Oximetry (%) 97 10/14/16 13:00 Constitutional: Yes: No Distress Eyes: Yes: Conjunctiva Clear Cardiovascular: Yes: Regular Rate and Rhythm, S1, S2 Respiratory: Yes: CTA Bilaterally Gastrointestinal: Yes: Normal Bowel Sounds, Soft. No: Tenderness Edema: No Labs: CBC, BMP 10/14/16 05:30 10/14/16 05:30 Assessment/Plan C difficile colitis Polyarticular arthritis- improved Fevers- resolved Continue po vancomycin for C difficile
[2016-10-14] MEDS: SENNOSIDES 8.6MG TABLET (FP) PO SCH (21:05)
[2016-10-15] MEDS: VANCOMYCIN 250 MG/5 ML ORAL SOLUTION PO SCH ×2 (00:13→04:59)
[2016-10-15 06:01] VITALS: TEMP 97.7
[2016-10-15 07:56] LABS: BASOPHIL 0.3 % (0-2.0); MCH 26.4 pg (25.7-33.7); MCHC 32.5 g/dl (32.0-35.9); MEAN CELL VOLUME 81.2 fl (80-96); MEAN PLT VOLUME 7.1 fl (7.5-11.1); NEUTROPHILS 93.2 % (42.8-82.8); PLATELET COUNT 439 K/MM3 (134-434); RDW 17.1 % (11.9-15.9); WHITE BLOOD COUNT 15.8 K/mm3 (4.0-10.0)
[2016-10-15 08:47] LABS: ALBUMIN 2.3 g/dl (3.4-5.0); BILIRUBIN,TOTAL 0.4 mg/dL (0.2-1.0); C-REACTIVE PROTEIN 9.7 MG/DL (0.00-0.3); CALCIUM 8.1 mg/dL (8.5-10.1); CREATININE 1.3 mg/dL (0.7-1.3); TOT PROT 5.7 g/dl (6.4-8.2)
--- NOTE | 2016-10-15 08:59 | DS ---
Physical Examination Vital Signs: Vital Signs Temperature 97.7 F 10/15/16 06:00 Pulse Rate 61 10/15/16 06:00 Respiratory Rate 20 10/15/16 06:00 Blood Pressure 138/87 10/15/16 06:00 O2 Sat by Pulse Oximetry (%) 96 10/14/16 21:00 Cardiovascular: Yes: Regular Rate and Rhythm Respiratory: Yes: Regular, CTA Bilaterally Gastrointestinal: Yes: Normal Bowel Sounds, Soft. No: Tenderness Labs: CBC, BMP 10/15/16 05:35 10/15/16 05:35 Discharge Summary Reason For Visit: LUNG CARCINOMA; LEUKOCYTOSIS Current Active Problems Clostridium difficile colitis (Acute) Fever (Acute) Leukocytosis (Acute) Lung cancer (Acute) Polyarticular arthritis (Acute) UTI (urinary tract infection) (Acute) Hospital Course: 75 Y/O MALE WITH METASTATIC LUNG CA ADENO TYPE, HTN, NEUROPATHY HERE WITH FEVER , CHILLS, LETHARGY, POLYARTHRALGIAS. 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)) Cardiovascular: Yes: Deep Vein Thrombosis (prior DVT in 2010 of right leg), HTN , Hyperlipdemia Pulmonary: Yes: Cancer (metastatic lung adenocarcinoma (mets to bone), treated with chemo in past and currently on immunotherapy) Renal/: Yes: Renal Inusuff, BPH Heme/Onc: Yes: Anemia - Smoking History Smoking history: Former smoker - Problems (1) Clostridium difficile colitis Assessment/Plan: PO VANCO ID ON BOARD STEROIDS Code(s): A04.7 - ENTEROCOLITIS DUE TO CLOSTRIDIUM DIFFICILE (2) Leukocytosis Assessment/Plan: DUE TO STEROIDS Microbiology 10/12/16 10:15 Blood Culture - Preliminary Blood - Peripheral Venous NO GROWTH OBTAINED AFTER 24 HOURS, INCUBATION TO CONTINUE FOR 4 DAYS. 10/12/16 10:15 Blood Culture - Preliminary Blood - Peripheral Venous NO GROWTH OBTAINED AFTER 24 HOURS, INCUBATION TO CONTINUE FOR 4 DAYS. 10/12/16 11:00 Urine Culture - Final Urine - Urine Clean Catch NO GROWTH OBTAINED Code(s): D72.829 - ELEVATED WHITE BLOOD CELL COUNT, UNSPECIFIED Qualifiers: Leukocytosis type: unspecified Qualified Code(s): D72.829 - Elevated white blood cell count, unspecified (3) Lung cancer Assessment/Plan: OFF CHEMO SINCE MARCH Code(s): C34.90 - MALIGNANT NEOPLASM OF UNSP PART OF UNSP BRONCHUS OR LUNG Qualifiers: Laterality: unspecified laterality Lung location: unspecified part of lung Qualified Code(s): C34.90 - Malignant neoplasm of unspecified part of unspecified bronchus or lung (4) Polyarticular arthritis Assessment/Plan: MAYBE DUE TO CHEMO RHEUMOTOLOGY CONSULT STEROIDS Code(s): M13.0 - POLYARTHRITIS, UNSPECIFIED Condition: Stable - Instructions Referrals: Radha Flores MD [Primary Care Provider] - 1 Week Raymundo Neri MD [Staff Physician] - Juan Hunter MD [Staff Physician] - Esdras Hsieh MD [Staff Physician] - Disposition: HOME - Home Medications Comprehensive Discharge Medication List: Ambulatory Orders Cholecalciferol (Vitamin D3) [Vitamin D3] 2,000 unit PO DAILY 06/21/16 Multivitamin [Poly-Vitamin] 1 each PO DAILY 06/21/16 Pyridoxine HCl (B-6) [Vitamin B6 -] 100 mg PO DAILY 06/21/16 Tamsulosin HCl [Flomax -] 0.8 mg PO DAILY 06/21/16 Losartan Potassium [Cozaar -] 50 mg PO DAILY 10/04/16 Acetaminophen [Tylenol .Regular Strength -] 650 mg PO Q4H PRN #0 tablet Lactobacillus Acidophilus [Bacid -] 1 tab PO DAILY tab 10/15/16 Prednisone [Deltasone -] 30 mg PO BID #100 tablet 10/15/16 Vancomycin Oral Solution 250 mg PO Q6HPO #40 ml 10/15/16
[2016-10-15] MEDS: LACTOBACILLUS ACIDOPHILUS 1 EACH TAB (FP) PO SCH (09:01)
[2016-10-15] MEDS: MULTIVITAMINS (DAILY MVI) TABLET (FP) PO SCH (09:01)
[2016-10-15] MEDS: LOSARTAN POTASSIUM 50 MG TABLET (FP) PO SCH (09:05)
[2016-10-15] MEDS: TAMSULOSIN HCL 0.4 MG CAP.ER.24H (FP) PO SCH (09:05)
[2016-10-15 09:06] VITALS: BP 143/82; PULSE 68
[2016-10-15] MEDS ORDERED: predniSONE 10 MG TABLET (UD) PO SCH (10:00)
[2016-10-15 10:10] LABS: ERYTHROCYTE SEDIMENTATION RATE 90 mm/hr (0-20)
[2016-10-16 00:07] LABS: PARV B19 IGG 3.6 index (0.0-0.8); PARV B19 IGM 0.1 index (0.0-0.8)
== END 2016-10-15 12:12 | disposition home or self-care (01) | DRG 554 ==
LOC: JER 14:22 → JERBED 17:28 → J7W 21:13 → J4S 10-12 17:39
PROVIDERS: ADMIT Family Medicine; ATTEND Family Medicine
DX: M13.0 Polyarthritis, unspecified (principal); N39.0 Urinary tract infection, site not specified; C34.90 Malignant neoplasm of unspecified part of unspecified bronchus or lung; C79.51 Secondary malignant neoplasm of bone; A04.7 Enterocolitis due to Clostridium difficile; M35.3 Polymyalgia rheumatica; I12.9 Hypertensive chronic kidney disease with stage 1 through stage 4 chronic kidney disease, or unspecified chronic kidney disease; N18.9 Chronic kidney disease, unspecified; Z87.891 Personal history of nicotine dependence; D64.9 Anemia, unspecified; G62.0 Drug-induced polyneuropathy; T45.1X5A Adverse effect of antineoplastic and immunosuppressive drugs, initial encounter; N40.0 Benign prostatic hyperplasia without lower urinary tract symptoms; Z86.718 Personal history of other venous thrombosis and embolism; D72.829 Elevated white blood cell count, unspecified; R50.81 Fever presenting with conditions classified elsewhere; M25.48 Effusion, other site
CPT/HCPCS: 36415; 71010-TC; 80053; 81003; 81015; 83605; 83735; 84100; 84550; 85025; 85027; 85651; 86038; 86140; 86431; 86747; 87040; 87086; 87254; 87324; 87449; 87804; 87899; 93005; 93010; 99283-25